=== PATIENT | male | born 1935 | race Caucasian/White ===

== ENCOUNTER 2017-07-01 12:55 | Emergency (ER) | payer MEDICARE, MEDICAID ==
[2017-07-01] MEDS ORDERED: oxyCODONE/Acetamin 5/325 MG* TAB PO ONE (14:10)
--- NOTE | 2017-07-01 14:33 | RAD ---
HISTORY: Trauma, fall, difficulty breathing COMPARISONS: None VIEWS: 7, Frontal view of the chest with frontal and oblique views of the right hemithorax. FINDINGS: There is a questionable nondisplaced fracture of the lateral aspect of the right eighth rib. There is no pneumothorax. There are chronic appearing fibrotic changes of the chest. IMPRESSION: QUESTIONABLE NONDISPLACED FRACTURE OF THE LATERAL ASPECT OF THE RIGHT EIGHTH RIB. THERE IS NO APPRECIABLE PNEUMOTHORAX.
[2017-07-01 15:11] LABS: ABS Basophils 0.1 10^3/ul (0-0.2); ABS Eosinophils 0.1 10^3/ul (0-0.6); ABS Lymphocytes 1.4 10^3/ul (1.0-4.8); ABS Monocytes 0.9 10^3/ul (0-0.8); ABS Neutrophils 9.1 10^3/ul (1.5-7.7); ABS Nucleated RBC 0 10^3/ul; Eosinophil % 0.8 % (0-6); Hematocrit 43 % (42-52); Hemoglobin 14.4 g/dl (14.0-18.0); Mean Corpuscular HGB Conc 34 g/dl (31-36); Mean Corpuscular Hemoglobin 33 pg (27-31); Mean Corpuscular Volume 96 fL (80-94); Mean Platelet Volume 7.5 um3 (7.4-10.4); Nucleated Red Blood Cells % 0; Platelet Count 166 10^3/ul (150-450); Red Blood Count 4.42 10^6/ul (4.0-5.4); Red Cell Distribution Width 14 % (10.5-15); White Blood Count 11.6 10^3/ul (3.5-10.8)
[2017-07-01 15:29] LABS: EGFR Non-African American 79.8 (>60)
[2017-07-01] MEDS ORDERED: Iohexol 300* (CONTRAST) 10 ML SDV IV ONE (15:32)
--- NOTE | 2017-07-01 16:20 | RAD ---
INDICATION: Fall. Chest, abdominal, pelvic pain. Evaluate for injury. COMPARISON: Right rib series July 01, 2017; chest x-ray November 03, 2015; CT abdomen pelvis on 2009; CTA chest January 08, 2009 TECHNIQUE: Axial source images were obtained from the thoracic inlet to the symphysis pubis following administration of oral and intravenous contrast. 103 mL Omnipaque 300 was utilized. Coronal and sagittal reconstructed images were acquired. CHEST FINDINGS: Neck/thyroid: The visualized neck to include the thyroid appear normal. Chest wall: There are no acute abnormalities of the bony thorax or chest wall. There is an old left 12th rib fracture. There is no supraclavicular, infraclavicular, or axillary lymphadenopathy. Lungs : There is pulmonary interstitial fibrosis. There is no focal consolidation. There is no pneumothorax. Cardiomediastinal structures: The heart is normal in size. There is no pericardial effusion. There is no evidence of aortic aneurysm or dissection. There is aortic ectasia with uncoiling. There are extensive intimal calcifications. The pulmonary vessels appear normal. There is no mediastinal or hilar adenopathy. The esophagus appears normal. Pleura : There are no pleural-based masses or effusions. ABDOMINAL/PELVIC FINDINGS: Liver: The liver is normal in size. There are no masses. There is no ductal dilatation. Gallbladder: There are no calcified gallstones. There is no evidence of wall thickening or pericholecystic fluid. Spleen: The spleen is normal in size. There are no masses. Pancreas: There is no evidence of pancreatic mass or ductal dilatation. The pancreas is mildly atrophic Adrenal glands: There is no evidence of adrenal mass. Kidneys: The kidneys are normal in size and position. There are prompt nephrograms and there is prompt excretion bilaterally. There are no renal parenchymal masses. There is no evidence of nephrolithiasis. Adenopathy: There is no evidence of adenopathy by size criteria. Fluid collections: There are no free or localized fluid collections. Vessels:There are atherosclerotic changes of the aorta. 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 The iliac vessels are ectatic tortuous and ectatic. The IVC is unremarkable GI tract: There are no acute CT bowel findings although evaluation is limited as oral contrast was not administered. There is no obstruction. The stomach and small bowel appear normal. The lower GI tract is remarkable for moderate diverticula. There are no CT findings of acute diverticulitis. Pelvic organs: The prostate is enlarged Bladder: There is trabeculation of the bladder with impression on the inferior wall by the mildly enlarged prostate. Abdominal and pelvic soft tissues: The extraperitoneal abdominal and pelvic soft tissues appear normal.. Osseous structures: There is spondylitic change of the thoracolumbar spine. No acute bony changes seen. IMPRESSION: 1. No acute CT findings of the chest. 2. Interstitial fibrotic changes. 3. No acute CT findings of the abdomen or pelvis. No evidence of traumatic injury to the solid viscera. 4. Scattered sigmoid colon diverticula. 5. BPH with trabeculation of bladder.
[2017-07-01 16:59] VITALS: BP 135/68
--- NOTE | 2017-07-01 21:10 | ED ---
Kulwant Lopez Nilda, scribed for Jayjay De Los Santos MD on 07/01/17 at 1415 . Adult Trauma - HPI Summary HPI Summary: This patient is an 81 year old M presenting to [facility] accompanied by with a chief complaint of constant R-rib pain and R-facial ecchymosis s/p tripping and falling forward while ambulating outside today at 1000. The patient rates the pain 5/10 in severity. Symptoms aggravated by inspiration, sitting, and movement , but alleviated by recumbent position. Patient denies neck pain, LOC, and memory loss of event. Pt states hes not on blood thinners except for baby aspirin last taken this morning. states they are unsure if tetanus vaccine UTD. She denies pt taking pain medications [employer]. Medications for mild HTN and mild HLD. NKDA. - History of Current Complaint Chief Complaint: EDChestWallPain Stated Complaint: FALL/FLANK PAIN Time Seen by Provider: 07/01/17 13:49 Hx Obtained From: Patient Mechanism of Injury: Fall Ambulatory at the Scene: Yes Loss of Consciousness: no loss of consciousness Onset/Duration: Started Hours Ago, Traumatic, Still Present Current Severity: Moderate Pain Intensity: 5 Pain Scale Used: 0-10 Numeric Location: Chest, Other - face Aggravating Factor(s): Movement, Deep Breaths, Other - sitting Alleviating Factor(s): Other - recumbent position Associated Signs & Symptoms: Positive: Other: - facial ecchymosis and R-rib pain ; negative neck pain, LOC, and memory loss. - Allergy/Home Medications Allergies/Adverse Reactions: Allergies Allergy/AdvReac Type Severity Reaction Status Date / Time esomeprazole Allergy GI Upset Verified 07/01/17 13:59 PMH/Surg Hx/FS Hx/Imm Hx Endocrine/Hematology History: Denies: Hx Diabetes, Hx Thyroid Disease Cardiovascular History: Reports: Hx Angina, Hx Congestive Heart Failure, Hx Hypercholesterolemia, Hx Hypertension Denies: Hx Pacemaker/ICD Respiratory History: Denies: Hx Asthma, Hx Chronic Obstructive Pulmonary Disease (COPD) GI History: Denies: Hx Ulcer History: Denies: Hx Renal Disease Musculoskeletal History: Denies: Hx Rheumatoid Arthritis, Hx Osteoporosis Sensory History: Reports: Hx Contacts or Glasses Denies: Hx Hearing Aid Opthamlomology History: Reports: Hx Contacts or Glasses Psychiatric History: Denies: Hx Panic Disorder - Surgical History Surgery Procedure, Year, and Place: DET[place]ED [place]INA [place] [facility] [place] D[place] 2004 PRIOR TO MRI - CLEARED FOR ANY METAL PER DR RACHEL CATARACT - Immunization History Date of Tetanus Vaccine: Unsure Date of Influenza Vaccine: 01/2013 Infectious Disease History: No Infectious Disease History: Denies: Hx Hepatitis, Hx Human Immunodeficiency Virus (HIV), Traveled Outside the [place] in Last 30 Days - Family History Known Family History: Negative: Cardiac Disease, Hypertension - Social History Lives: With Family Alcohol Use: Daily Alcohol Amount: 2 BEERS Substance Use Type: Reports: None Smoking Status (MU): Former Smoker Review of Systems Positive: Other - R-rib pain, mechanical fall; negative neck pain Positive: Bruising - R-face Neurological: Other - negative LOC, memory loss of event All Other Systems Reviewed And Are Negative: Yes Physical Exam - Summary Physical Exam Summary: GENERAL: Patient is a well developed and nourished M who is lying comfortable in the stretcher. Patient is not in any acute respiratory distress. HEAD AND FACE: Normocephalic except for ecchymosis to right side of medial aspect of face and abrasion on right cheek. EYES: PERRLA, EOMI x 2. EARS: Hearing grossly intact. MOUTH: Oropharynx within normal limits. NECK: Supple, trachea is midline, no adenopathy, no JVD, no carotid bruit. CHEST: Symmetric, Right anterior rib tenderness LUNGS: Crackles at the bases. CVS: Regular rate and rhythm, S1 and S2 present, no murmurs or gallops appreciated. ABDOMEN: Soft, RUQ tenderness. Bowel sounds are normal. No abdominal abnormal pulsations. EXTREMITIES: Full ROM in all major joints, no edema, no cyanosis or clubbing. NEURO: Alert and oriented x 3. No acute neurological deficits. Speech is normal and follows commands. SKIN: Dry and warm GCS: 15 Triage Information Reviewed: Yes Vital Signs On Initial Exam: Initial Vitals Temp Pulse Resp BP Pulse Ox 96.6 F 62 18 131/74 96 07/01/17 12:57 07/01/17 12:57 07/01/17 12:57 07/01/17 12:57 07/01/17 12:57 Vital Signs Reviewed: Yes Diagnostics - Vital Signs Vital Signs Temp Pulse Resp BP Pulse Ox 07/01/17 12:57 96.6 F 62 18 131/74 96 - Laboratory Result Diagrams: 07/01/17 15:00 07/01/17 15:00 Lab Statement: Any lab studies that have been ordered have been reviewed, and results considered in the medical decision making process. - Radiology Rib XR Radiology Interpretation Completed By: Radiologist - Rib XR reveals QUESTIONABLE NONDISPLACED FRACTURE OF THE LATERAL ASPECT OF THE RIGHT EIGHTH RIB. THERE IS NO APPRECIABLE PNEUMOTHORAX. Dr. De Los Santos has reviewed this radiology report. - CT Abd/Pel CT Interpretation Completed By: Radiologist - CT Abd/Pel, per radiologist, reveals 1. No acute CT findings of the chest. 2. Interstitial fibrotic changes. 3. No acute CT findings of the abdomen or pelvis. No evidence of traumatic injury to the solid viscera. 4. Scattered sigmoid colon diverticula. 5. BPH with trabeculation of bladder. Dr. De Los Santos has reviewed this radiology report. - EKG 1455 Cardiac Rate: NL EKG Rhythm: Sinus Rhythm - 61 bpm EKG Interpretation: prolonged TN interval, LBBB EKG Comparison: No Significant Change - similar to EKG 03/01/15 Re-Evaluation - Re-Evaluation First Eval Re-Evaluation Time: 15:13 Comment: Pt states pain is a little better but is still there. He notes pain is below rib cage. Second Eval Re-Evaluation Time: 16:36 Comment: Pt feels a lot better. Reviewed all labs and imaging with pt. Pt is agreeable to D/C. Adult Trauma Course/Dx - Course Assessment/Plan: This patient is an 81 year old M [place] [facility] by with a chief complaint of constant R-rib pain and R-facial ecchymosis s/p tripping and falling forward while ambulating outside today at 1000. The patient rates the pain 5/10 in severity. Symptoms aggravated by inspiration, sitting, and movement, but alleviated by rest. Patient denies neck pain, LOC, and memory loss of event. Pt states hes not on blood thinners except for baby aspirin last taken this morning. states they are unsure if tetanus vaccine UTD. She denies pt taking pain medications [employer]. Medications for mild HTN and mild HLD. NKDA. Pt is much improved. I reviewed the labs which shows mild leukocytosis. CXR shows questionable rib fracture on the right. CT Scan of Chest/Abd/Pelvis, show no rib fracture on right but show old rib fracture on left as well as fibrotic changes on the lungs. CT of abd showed no acute etiology. I discussed the results with the pt in great detail. Pt is hemodynamically stable and is safe for D/C home with strict return precautions. I suspect pts pain is likely secondary to rib contusion. Pt will be sent home with ibuprofen and incentive spirometer. - Diagnoses Provider Diagnoses: Rib contusion, Fall Discharge - Sign-Out/Discharge Documenting (check all that apply): Discharge - home - Discharge Plan Condition: Stable Disposition: HOME Prescriptions: Ibuprofen TAB* [Motrin TAB* 600 MG] 600 mg PO Q8H PRN #20 tab PRN Reason: Pain Patient Education Materials: How to Use an Incentive Spirometer (ED), Fall Prevention for Older Adults (ED), Rib Contusion (ED) Referrals: Price Ledbetter MD [Primary Care Provider] - 3 Days Additional Instructions: RETURN TO THE EMERGENCY DEPARTMENT FOR CHANGING OR WORSENING SYMPTOMS. The documentation as recorded by the Kulwant meyer Nilda accurately reflects the service I personally performed and the decisions made by me, Jayjay De Los Santos MD.
== END 2017-07-01 16:59 | disposition home or self-care (01) ==
LOC: ED 12:55
DX: S20.211A Contusion of right front wall of thorax, initial encounter (principal); S00.83XA Contusion of other part of head, initial encounter; W01.0XXA Fall on same level from slipping, tripping and stumbling without subsequent striking against object, initial encounter; Y93.9 Activity, unspecified; Y92.9 Unspecified place or not applicable; K57.30 Diverticulosis of large intestine without perforation or abscess without bleeding; N40.0 Benign prostatic hyperplasia without lower urinary tract symptoms; I20.9 Angina pectoris, unspecified; I11.0 Hypertensive heart disease with heart failure; I50.9 Heart failure, unspecified; E78.00 Pure hypercholesterolemia, unspecified; Z87.891 Personal history of nicotine dependence
CPT/HCPCS: 36415; 71260; 74177; 80053; 83690; 84484; 85025; 93005; 99282; A9270-GY; Q9967

== ENCOUNTER 2018-09-06 17:10 | Emergency (ER) | payer MEDICARE, MEDICAID ==
--- NOTE | 2018-09-06 17:36 | ED ---
HPI Chest Pain - HPI Summary HPI Summary: The patient is an 83 y[facility] with a chief complaint of sudden onset CP [employer] BENCH. 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 The chest pain is not present at this time. He denies SOB and dizziness. Hx of angina, CHF, HLD, HTN. Former smoker, daily EtOH, no substance use. - History of Current Complaint Chief Complaint: EDChestPainROMI Time Seen by Provider: 09/06/18 17:27 Hx Obtained From: Patient Onset/Duration: Started Minutes Ago, Resolved Timing: Lasting Seconds - 15-20 Initial Severity: Mild Current Severity: None Pain Intensity: 0 Pain Scale Used: 0-10 Numeric Chest Pain Location: Upper Sternal Chest Pain Radiates: Yes Chest Pain Radiates To:: Other - from left to right anterior Character: Dull/Aching Aggravating Factor(s): Nothing Alleviating Factor(s): Nothing Associated Signs and Symptoms: Negative: Dizziness, Shortness of Breath - Allergy/Home Medications Allergies/Adverse Reactions: Allergies Allergy/AdvReac Type Severity Reaction Status Date / Time esomeprazole Allergy GI Upset Verified 07/01/17 13:59 PMH/Surg Hx/FS Hx/Imm Hx Endocrine/Hematology History: Denies: Hx Diabetes, Hx Thyroid Disease Cardiovascular History: Reports: Hx Angina, Hx Congestive Heart Failure, Hx Hypercholesterolemia, Hx Hypertension Denies: Hx Pacemaker/ICD Respiratory History: Denies: Hx Asthma, Hx Chronic Obstructive Pulmonary Disease (COPD) GI History: Denies: Hx Ulcer History: Denies: Hx Renal Disease Musculoskeletal History: Denies: Hx Rheumatoid Arthritis, Hx Osteoporosis Sensory History: Reports: Hx Contacts or Glasses Denies: Hx Hearing Aid Opthamlomology History: Reports: Hx Contacts or Glasses Psychiatric History: Denies: Hx Panic Disorder - Surgical History Surgery Procedure, Year, and Place: DETACHED RETINA - @ [facility] [place] - ORBIT XRAY DONE 2004 PRIOR TO MRI - CLEARED FOR ANY METAL PER DR RACHEL CATARACT - Immunization History Date of Tetanus Vaccine: Unsure Date of Influenza Vaccine: 01/2013 Infectious Disease History: No Infectious Disease History: Denies: Hx Hepatitis, Hx Human Immunodeficiency Virus (HIV), Traveled Outside the [place] in Last 30 Days - Family History Known Family History: Negative: Cardiac Disease, Hypertension - Social History Alcohol Use: Daily Alcohol Amount: 2 BEERS Hx Substance Use: No Substance Use Type: Reports: None Hx Tobacco Use: Yes Smoking Status (MU): Former Smoker Do You Chew or Dip Tobacco: No Have You Chewed or Dipped Tobacco in the LAST YEAR: No Have You Smoked in the Last Year: No Review of Systems Positive: Chest Pain - dull, across the chest Negative: Shortness Of Breath Neurological: Other - NEGATIVE: dizziness All Other Systems Reviewed And Are Negative: Yes Physical Exam - Summary Physical Exam Summary: VITAL SIGNS: Reviewed. GENERAL: Patient is a well-developed and nourished male who is lying comfortable in the stretcher. Patient is not in any acute respiratory distress. HEAD AND FACE: No signs of trauma. No ecchymosis, hematomas or skull depressions. No sinus tenderness. EYES: PERRLA, EOMI x 2, No injected conjunctiva, no nystagmus. EARS: Hearing grossly intact. Ear canals and tympanic membranes are within normal limits. MOUTH: Oropharynx within normal limits. NECK: Supple, trachea is midline, no adenopathy, no JVD, no carotid bruit, no c- spine tenderness, neck with full ROM. CHEST: Symmetric, no tenderness at palpation LUNGS: Clear to auscultation bilaterally. No wheezing or crackles. CVS: Regular rate and rhythm, S1 and S2 present, no murmurs or gallops appreciated. ABDOMEN: Soft, non-tender. No signs of distention. No rebound no guarding, and no masses palpated. Bowel sounds are normal. EXTREMITIES: FROM in all major joints, no edema, no cyanosis or clubbing. NEURO: Alert and oriented x 3. No acute neurological deficits. Speech is normal and follows commands. SKIN: Dry and warm. Triage Information Reviewed: Yes Vital Signs On Initial Exam: Initial Vitals Temp Pulse Resp BP Pulse Ox 98.2 F 81 16 173/100 93 09/06/18 17:26 09/06/18 17:26 09/06/18 17:26 09/06/18 17:26 09/06/18 17:26 Vital Signs Reviewed: Yes Diagnostics - Vital Signs Vital Signs Temp Pulse Resp BP Pulse Ox 09/06/18 17:26 98.2 F 81 16 173/100 93 - Laboratory Result Diagrams: 09/06/18 18:01 09/06/18 18:01 Lab Statement: Any lab studies that have been ordered have been reviewed, and results considered in the medical decision making process. - Radiology CXR Radiology Interpretation Completed By: Radiologist Summary of Radiographic Findings: No acute process. ED physician has reviewed this radiology report. - EKG 1723 Cardiac Rate: NL - 73 BPM EKG Rhythm: Sinus Rhythm EKG Comparison: No Significant Change - Similar to EKG taken on 07/01/2017 Summary of EKG Findings: No ST elevations Re-Evaluation - Re-Evaluation First Eval Re-Evaluation Time: 21:15 Change: Improved Comment: I discussed results and discharge home with the patient. He is feeling better in the ED. Chest Pain Course/Dx - Course Assessment/Plan: The patient is an 83 y/o M presenting to [facility] accompanied by neighbor with a chief complaint of sudden onset CP [employer]. 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 The chest pain is not present at this time. He denies SOB and dizziness. Hx of angina, CHF, HLD , HTN. Former smoker, daily EtOH, no substance use. Blood work without any significant abnormality. Two troponins 4 hours apart are 0.01. Chest x-ray impression: no acute process. Since the patient has two negative troponins and he is symptom-free, the patient can be discharged home with follow-up with primary care physician. The patient is hemodynamically stable alert and oriented 3. - Diagnoses Provider Diagnoses: Atypical chest pain Discharge - Sign-Out/Discharge Documenting (check all that apply): Patient Departure - The patient will be discharged home. Patient Received Moderate/Deep Sedation with Procedure: No - Discharge Plan Condition: Stable Disposition: HOME Patient Education Materials: Chest Pain (DC) Referrals: Price Ledbetter MD [Primary Care Provider] - 3 Days Additional Instructions: FOLLOW UP WITH YOUR PRIMARY CARE PROVIDER. RETURN TO THE EMERGENCY DEPARTMENT FOR ANY NEW OR WORSENING SYMPTOMS. - Billing Disposition and Condition Condition: STABLE Disposition: Home - Attestation Statements Document Initiated by Scribe: Yes Documenting Scribe: Tenisha Painter Provider For Whom Scribe is Documenting (Include Credential): Dr. Vasiliy Harris MD Scribe Attestation: ITenisha, scribed for Dr. Vasiliy Harris MD on 09/07/18 at 1113. Scribe Documentation Reviewed: Yes Provider Attestation: The documentation as recorded by the scribe, Tenisha Painter accurately reflects the service I personally performed and the decisions made by me, Dr. Vasiliy Harris MD Status of Scribe Document: Viewed
[2018-09-06] MEDS ORDERED: Aspirin 81 mg CHEW TAB* 81 MG TAB.CHEW PO ONE (17:47)
[2018-09-06 18:11] LABS: ABS Eosinophils 0.2 10^3/ul (0-0.6); ABS Lymphocytes 1.3 10^3/ul (1.0-4.8); ABS Monocytes 0.8 10^3/ul (0-0.8); ABS Neutrophils 5.1 10^3/ul (1.5-7.7); Eosinophil % 2.6 %; Hematocrit 45 % (42-52); Hemoglobin 14.9 g/dL (14.0-18.0); Lymphocyte % 17.8 %; Mean Corpuscular HGB Conc 34 g/dL (31-36); Mean Corpuscular Hemoglobin 32 pg (27-31); Mean Corpuscular Volume 96 fL (80-94); Mean Platelet Volume 7.3 fL (7.4-10.4); Nucleated Red Blood Cells % 0.1; Platelet Count 187 10^3/uL (150-450); Red Blood Count 4.63 10^6 /uL (4.18-5.48); Red Cell Distribution Width 15 % (10-15); White Blood Count 7.5 10^3/uL (3.5-10.8)
[2018-09-06 18:26] LABS: Albumin 3.7 g/dL (3.2-5.2); Albumin/Globulin Ratio 1.2 (1-3); BUN/Creatinine Ratio 17.3 (8-20); Calcium 9.2 mg/dL (8.6-10.3); EGFR African American 77.2 (>60); EGFR Non-African American 63.8 (>60); Potassium 3.7 mmol/L (3.5-5.0); Total Bilirubin 0.6 mg/dL (0.2-1.0); Total Protein 6.7 g/dL (6.4-8.9)
[2018-09-06 18:29] LABS: Troponin I 0.01 ng/mL (<0.04)
[2018-09-06 18:31] LABS: CKMB ng/mL 1.5 ng/mL (0.6-6.3)
[2018-09-06 18:59] LABS: TSH (Thyroid Stimulating Horm) 1.98 mcIU/mL (0.34-5.60)
[2018-09-06 21:43] VITALS: BP 137/73
--- NOTE | 2018-09-07 09:30 | PN ---
Progress Note - Progress Note Date of Service: 09/06/18 Note: Pt. seen in ED yesterday after an episode of chest pain. Per Dr. Harris's note pt. was chest pain free in ER without SOB, dizzy, syncope, ect. Workup was negative and pt. was dc home. Dr. García reviewed CXR this morning and was concerned there has been widening of aorta arch compared to prior study. He recommends CTA if pt. is having sxs of dissection. It did not appear pt. was having sxs of dissection in ED past on ER report. Attempted to call pt. today at 0925 without answer or voicemail. Will call again later in the day. CXR read per Dr. García: IMPRESSION: 1. MILD INCREASE IN THE DIFFUSE PARENCHYMAL DENSITY RELATIVE TO THE PREVIOUS CHEST X-RAY. THIS APPEARANCE COULD BE DUE TO INTERSTITIAL LUNG DISEASE, WORSENING CONGESTIVE HEART FAILURE OR PNEUMONITIS. 2. RELATIVE TO THE CHEST X-RAY ACQUIRED NOVEMBER 03, 2015 THERE APPEARS TO BE INTERVAL WIDENING OF THE ARCH OF THE AORTA NOW MEASURING APPROXIMATELY 4.7 CM IN DIAMETER. THIS APPEARANCE COULD BE DUE TO MAGNIFICATION. IF THE PATIENT IS EXHIBITING ANY SIGNS CONSISTENT WITH THORACIC AORTIC ANEURYSM, SUPERIOR CHARACTERIZATION CAN BE MADE WITH CTA.
== END 2018-09-06 21:45 | disposition home or self-care (01) ==
LOC: ED 17:10
DX: R07.89 Other chest pain (principal); Z87.891 Personal history of nicotine dependence; I10 Essential (primary) hypertension; E78.5 Hyperlipidemia, unspecified; I50.9 Heart failure, unspecified
CPT/HCPCS: 36415; 71046; 80053; 82550; 82553; 83605; 83880; 84443; 84484; 85025; 93005; 99284; A9270-GY

== ENCOUNTER 2018-10-02 12:37 | Emergency (ER) | payer MEDICARE, MEDICAID ==
--- NOTE | 2018-10-02 14:35 | ED ---
Neck Pain - HPI Summary HPI Summary: The patient is an 83 y/o M presenting to [facility] with a chief complaint of sudden onset bilateral neck pain this morning. He reports that he went to bed last night and slept well but woke up with the pain and stiffness, which is worse on the right than the left. There is decreased ROM secondary to the pain and stiffness that is currently rated 8/10 in severity. He denies CP, palpitations, SOB, dysphagia, and headache. Hx of angina, CHF, HLD, HTN. Surgical hx of retinal detachment. Former smoker, no EtOH, no substance use. - History of Current Complaint Chief Complaint: EDNeckComplaint Stated Complaint: NECK AND HEAD PAIN Time Seen by Provider: 10/02/18 14:08 Hx Obtained From: Patient Onset/Duration Of Injury/Symptoms: Hours Mechanism Of Injury: No Known Trauma Timing: Lasting Hours Onset/Duration: Sudden Onset, Started hours ago, Still Present Severity Initially: Moderate Severity Currently: Severe Pain Intensity: 8 Pain Scale Used: 0-10 Numeric Location: Discrete At: - bilateral neck worse on right Character: Stiff Aggravating Factors: Movement - of neck Alleviating Factors: Position - rest Associated Signs & Symptoms: Negative: Headache - Allergies/Home Medications Allergies/Adverse Reactions: Allergies Allergy/AdvReac Type Severity Reaction Status Date / Time esomeprazole Allergy GI Upset Verified 10/02/18 12:49 Home Medications: Home Medications Cyanocobalamin (Vitamin B-12) [Vitamin B-12] 100 mcg PO DAILY 10/02/18 [History Confirmed 10/02/18] PMH/Surg Hx/FS Hx/Imm Hx Endocrine/Hematology History: Denies: Hx Diabetes, Hx Thyroid Disease Cardiovascular History: Reports: Hx Angina, Hx Congestive Heart Failure, Hx Hypercholesterolemia, Hx Hypertension Denies: Hx Pacemaker/ICD Respiratory History: Denies: Hx Asthma, Hx Chronic Obstructive Pulmonary Disease (COPD) GI History: Denies: Hx Ulcer History: Denies: Hx Renal Disease Musculoskeletal History: Denies: Hx Rheumatoid Arthritis, Hx Osteoporosis Sensory History: Reports: Hx Contacts or Glasses Denies: Hx Hearing Aid Opthamlomology History: Reports: Hx Contacts or Glasses Psychiatric History: Denies: Hx Panic Disorder - Surgical History Surgery Procedure, Year, and Place: DETACHED RETINA - [place] [facility] [place] DONE 2004 PRIOR TO MRI - CLEARED FOR ANY METAL PER DR RACHEL CATARACT - Immunization History Date of Tetanus Vaccine: Unsure Date of Influenza Vaccine: 01/2013 Infectious Disease History: No Infectious Disease History: Denies: Hx Hepatitis, Hx Human Immunodeficiency Virus (HIV), Traveled Outside the [place] in Last 30 Days - Family History Known Family History: Negative: Cardiac Disease, Hypertension - Social History Alcohol Use: None Hx Substance Use: No Substance Use Type: Reports: None Hx Tobacco Use: Yes Smoking Status (MU): Former Smoker Have You Smoked in the Last Year: No Review of Systems Positive: Other - NEGATIVE: dysphagia Negative: Palpitations, Chest Pain Negative: Shortness Of Breath Positive: Myalgia - bilateral neck worse on right than left, stiffness, Decreased ROM - in the neck secondary to pain and stiffness Negative: Headache All Other Systems Reviewed And Are Negative: Yes Physical Exam - Summary Physical Exam Summary: VITAL SIGNS: Reviewed. GENERAL: Patient is a well-developed and nourished male who is lying comfortable in the stretcher. Patient is not in any acute respiratory distress. HEAD AND FACE: No signs of trauma. No ecchymosis, hematomas or skull depressions. No sinus tenderness. EYES: PERRLA, EOMI x 2, No injected conjunctiva, no nystagmus. EARS: Hearing grossly intact. Ear canals and tympanic membranes are within normal limits. MOUTH: Oropharynx within normal limits. NECK: No C-spine tenderness, but there is tenderness along the sternocleidomastoid and trapezius on the right side. Supple, trachea is midline , no adenopathy, no JVD, no carotid bruit, neck with full ROM. CHEST: Symmetric, no tenderness at palpation. LUNGS: Clear to auscultation bilaterally. No wheezing or crackles. CVS: Regular rate and rhythm, S1 and S2 present, no murmurs or gallops appreciated. ABDOMEN: Soft, non-tender. No signs of distention. No rebound, no guarding, and no masses palpated. Bowel sounds are normal. EXTREMITIES: FROM in all major joints, no edema, no cyanosis or clubbing. NEURO: Alert and oriented x 3. No acute neurological deficits. Speech is normal and follows commands. SKIN: Dry and warm. Triage Information Reviewed: Yes Vital Signs On Initial Exam: Initial Vitals Temp Pulse Resp BP Pulse Ox 99.3 F 94 16 189/113 93 10/02/18 12:44 10/02/18 12:44 07/04/19 12:44 10/02/18 12:44 10/02/18 12:44 Vital Signs Reviewed: Yes Diagnostics - Vital Signs Vital Signs Temp Pulse Resp BP Pulse Ox 10/02/18 12:44 99.3 F 94 16 189/113 93 - Laboratory Lab Statement: Any lab studies that have been ordered have been reviewed, and results considered in the medical decision making process. - CT Cervical Spine CT CT Interpretation Completed By: Radiologist Summary of CT Findings: 1. Osteopenia. 2. Degenerative disc disease and osteoarthritis. 3. There is moderate narrowing of the central canal at c5-c6 with mild narrowing at C3-C4, C4-C5, and C6-C7. 4. There is multilevel neural foraminal narrowing as described above. 5. Atherosclerosis. ED physician has reviewed this report. Re-Evaluation - Re-Evaluation First Eval Re-Evaluation Time: 16:00 Change: Improved Comment: We discussed results and discharge home after his symptoms have improved. Neck Course/Dx - Course Assessment/Plan: The patient is an 83 y/o M presenting to [facility] with a chief complaint of sudden onset bilateral neck pain this morning. He reports that he went to bed last night and slept well but woke up with the pain and stiffness, which is worse on the right than the left. There is decreased ROM secondary to the pain and stiffness that is currently rated 8/10 in severity. He denies CP, palpitations, SOB, dysphagia, and headache. Hx of angina, CHF, HLD, HTN. Surgical hx of retinal detachment. Former smoker, no EtOH, no substance use. C- spine CT Impression: 1. OSTEOPENIA. 2. DEGENERATIVE DISC DISEASE AND OSTEOARTHRITIS. 3. THERE IS MODERATE NARROWING OF THE CENTRAL CANAL AT C5-C6 WITH MILD NARROWING AT C3-C4, C4-C5, AND C6-C7. 4. THERE IS MULTILEVEL NEURAL FORAMINAL NARROWING DESCRIBED ABOVE. 5. ATHEROSCLEROSIS. In the physical exam , the patient most likely exhibits musculoskeletal pain likely torticollis. The patient was given dexamethasone, [place], Toradol, and Robaxin. After these medications, the patients symptoms have significantly improved. Therefore, he will be discharged home with follow-up with PCP. I discussed all the findings and test results with the patient. Patient was instructed to return to the emergency room immediately if any of the symptoms return worsens. Plan of care was discussed with the patient and understands and agrees. All questions were answered at patient satisfaction. There were no further complaints or concerns. Lung exam before discharge: CTA B/L. Good air exchange. No wheezing or crackles heard. CVS: S1 and S2 present. No murmurs appreciated. Patient is alert and oriented x 3. Patient is hemodynamically stable. Patient will be discharged home with follow up PCP in the next 2-3 days. - Diagnoses Provider Diagnoses: Neck pain Discharge - Sign-Out/Discharge Documenting (check all that apply): Patient Departure - Patient will be discharged home. Patient Received Moderate/Deep Sedation with Procedure: No - Discharge Plan Condition: Stable Disposition: HOME Prescriptions: HYDROcodone/ACETAMIN 5-325 MG* [[place] 5-325 TAB*] 1 tab PO Q6H PRN #10 tab MDD 4 PRN Reason: Pain Methocarbamol TAB* [Robaxin 500 MG TAB*] 500 mg PO TID PRN #12 tab PRN Reason: Spasms - Back methylPREDNISolone [Medrol Dosepak 4 MG*] 0 mg PO .SEE FERNANDO INSTRUCTION #1 fernando Patient Education Materials: Neck Pain (ED) Referrals: Price Ledbetter MD [Primary Care Provider] - 3 Days Additional Instructions: Please take medications as prescribed. Follow up with your primary care provider in 2-3 days. RETURN TO THE EMERGENCY DEPARTMENT FOR ANY NEW OR WORSENING SYMPTOMS. - Billing Disposition and Condition Condition: STABLE Disposition: Home - Attestation Statements Document Initiated by Maty: Yes Documenting Scribe: Tenisha Painter Provider For Whom Maty is Documenting (Include Credential): Dr. Vasiliy Harris MD Scribe Attestation: Tenisha Lopez scribed for Dr. Vasiliy Harris MD on 10/02/18 at 2030. Scribe Documentation Reviewed: Yes Provider Attestation: The documentation as recorded by the Tenisha meyer accurately reflects the service I personally performed and the decisions made by me, Dr. Vasiliy Harris MD Status of Scribe Document: Ready
[2018-10-02] MEDS ORDERED: Methocarbamol TAB* 500 MG PO ONE (15:28)
[2018-10-02] MEDS ORDERED: Ketorolac INJ* 60 MG/2 ML VIAL IM ONE (15:28)
[2018-10-02] MEDS ORDERED: HYDROcodone/ACETAMIN 5-325 MG* 1 TAB PO ONE (15:28)
[2018-10-02] MEDS ORDERED: Dexamethasone TAB* 4 MG PO ONE (15:29)
[2018-10-02 16:30] VITALS: BP 187/96
== END 2018-10-02 16:27 | disposition home or self-care (01) ==
LOC: ED 12:37
DX: M50.30 Other cervical disc degeneration, unspecified cervical region (principal); M85.88 Other specified disorders of bone density and structure, other site; M47.812 Spondylosis without myelopathy or radiculopathy, cervical region; I70.90 Unspecified atherosclerosis
CPT/HCPCS: 72125; 96372; 99283; A9270-GY; J1885; J8540

== ENCOUNTER 2019-07-17 06:20 | Emergency (ER) | payer MEDICARE, MEDICAID ==
--- OUTSIDE RECORDS SUMMARY | 2019-07-17 06:37 | XMS REPORT | Continuity of Care Document ---
:1935 External Reference #:[id number] Author Name Price Ledbetter MD Address [address] [place] [address] Problems Active Problems Provider Date Adult health examination Onset: 04/17/2018 Gastroesophageal reflux disease Onset: 10/29/2016 Pneumonia Onset: 07/20/2015 Tubular adenoma of colon Onset: 10/26/2014 Dementia Onset: 04/22/2014 Raynaud's phenomenon Onset: 02/12/2014 Benign essential hypertension Onset: 04/17/2018 Social History Type Date Description Comments Sex Unknown Tobacco Use Start: Unknown End: Unknown Patient is a former smoker quit 1972 Smoking Status Reviewed: 06/11/19 Patient is a former smoker quit 1972 Allergies, Adverse Reactions, Alerts Active Allergies Reaction Severity Comments Date Aricept Sleep issues Mild 12/05/2018 Chlorthalidone Hyponatremia Moderate 12/05/2018 Medications Active Medications SIG Qnty Indications Ordering Provider Date Lisinopril 1 by mouth 90tabs Price Ledbetter MD 06/18/2019 5mg Tablets every day Vitamin C 1 twice daily 60tabs Unknown 06/07/2014 500mg Tablets Oral Vitamin B-12 1 Daily Oral 30tabs Unknown 06/04/2014 100mcg Tablets Medications Administered in Office Medication SIG Qnty Indications Ordering Provider Date Injection Triamcinolone Acetonide Unknown 05/03/2017 Per 10 MG Injection Inject/Drain Arthrocentesis Major Unknown 05/03/2017 Joint/Bursa/Ganglion Cyst Injection Immunizations CPT Code Status Date Vaccine Lot # [id number] Given 06/08/2019 Shingrix - Shingles vaccine, Herpes Zoster [id number] Given 06/08/2019 Flu High Dose [id number] 72024 Given 01/18/2018 Flu High Dose 06338 Given 12/21/2016 Flu High Dose 75582 Given 01/30/2016 Flu High Dose 71212 Given 05/31/2014 Prevnar 13 64867 Given 04/10/2013 Tdap - Boostrix/Adacel 73632 Given 02/16/2013 Pneumovax - for >=2years - PPSV23 Vital Signs Date Vital Result Comment 06/17/2019 1:42pm Weight 158.00 lb 06/11/2019 3:09pm BP Systolic 130 mmHg BP Diastolic 62 mmHg Height 67.5 inches 5'7.50" Weight 159.00 lb Heart Rate 75 /min Body Temperature 97.0 F O2 % BldC Oximetry 95 % room air BMI (Body Mass Index) 24.5 kg/m2 Results Test Acquired Date Facility Test Result H/L Range Note Urine Culture And 06/17/2019 [facility] Urine Culture SEE RESULT [address] [place] [address] [phone] CFM Urinalysis 06/17/2019 [facility] Urine 1.015 ( )- - Specific [place] Ua PH Test Strip 7.0 Ua WBC Trace Ua Protein Trace Urine Glucose QL Neg Urine Ketones QL Test Strip Trace Urine Bilirubin TTL QL T-Strip Small Urine Urobilinogen QN TS 1.0E.U/dL Urine Nitrite QL TS Neg Ua Occult Blood Neg CBC Auto 06/17/2019 [facility] White Blood 6.9 10^3/uL Normal 3.5-10.[address] [place] [address] [phone] Red Blood Count 4.80 10^6/uL Normal 4.18-5.48 Hemoglobin 16.9 g/dL Normal 14.0-18.0 Hematocrit 48 % Normal 42-52 Mean Corpuscular Volume 100 fL High 80-94 Mean Corpuscular Hemoglobin 35 pg High 27-31 Mean Corpuscular HGB Conc 35 g/dL Normal 31-36 Red Cell Distribution Width 14 % Normal 10-15 Platelet Count 167 10^3/uL Normal 150-450 Mean Platelet Volume 8.7 fL Normal 7.4-10.4 Abs Neutrophils 4.9 10^3/uL Normal 1.5-7.7 Abs Lymphocytes 1.1 10^3/uL Normal 1.0-4.8 Abs Monocytes 0.8 10^3/uL Normal 0-0.8 Abs Eosinophils 0.2 10^3/uL Normal 0-0.6 Abs Basophils 0.0 10^3/uL Normal 0-0.2 Abs Nucleated RBC 0.0 10^3/uL Granulocyte % 70.4 % Lymphocyte % 15.2 % Monocyte % 11.7 % Eosinophil % 2.2 % Basophil % 0.5 % Nucleated Red Blood Cells % 0.1 Comp Metabolic 06/17/2019 [facility] Sodium 137 mmol/L Normal 135-[address] [place] [address] [phone] Potassium 4.1 mmol/L Normal 3.5-5.0 Chloride 99 mmol/L Low 101-111 Co2 Carbon Dioxide 30 mmol/L Normal 22-32 Anion Gap 8 mmol/L Normal 2-11 Glucose 103 mg/dL High 70-100 Blood Urea Nitrogen 16 mg/dL Normal 6-24 Creatinine 1.15 mg/dL Normal 0.67-1.17 BUN/Creatinine Ratio 13.9 Normal 8-20 Calcium 9.7 mg/dL Normal 8.6-10.3 Total Protein 6.7 g/dL Normal 6.4-8.9 Albumin 3.9 g/dL Normal 3.2-5.2 Globulin 2.8 g/dL Normal 2-4 Albumin/Globulin Ratio 1.4 Normal 1-3 Total Bilirubin 0.90 mg/dL Normal 0.2-1.0 Alkaline Phosphatase 86 U/L Normal 34-104 Alt 16 U/L Normal 7-52 Ast 22 U/L Normal 13-39 Egfr Non- 60.6 >60 Egfr 73.3 >60 2 Laboratory test 06/17/2019 [facility] B-Type 132 pg/mL High <= 100 [address] [place] [address] Peptide BNP [phone] Folic Acid (Folate) 6.46 ng/mL >3.99 4 Vitamin B12 817 pg/mL Normal 180-914 5 1 SEE RESULT BELOW Name: ALBERT MURILLO : [address]: Price Ledbetter MD Acct: [id number] Unit: [id number] AGE: 83 Location: [facility] Re06/17/19 SEX: M Status: REG REF SPEC: [id number] ISIDRO: 06/17/19-[address]: Price Ledbetter MD REQ: [id number] RECD: 06/17/19 STATUS: COMP _ SOURCE: URINE SPDESC: ORDERED: Urine Culture COMMENTS: [id number] Urine Source: Random Procedure Result Reported Site Urine Culture Final 06/18/19- 1437 ML No Growth (<1,000 CFU/mL) * - Main Lab . END OF REPORT DEPARTMENT OF PATHOLOGY, [address] [place] [address] Onesimo Miramontes M.D. Director [facility] # [id number] 2 Because ethnic data is not always readily available, this report includes an eGFR for both -Americans and non- Americans. The National Kidney Disease Education Program (NKDEP) does not endorse the use of the MDRD equation for patients that are not between the ages of 18 and 70, are , have extremes of body size, muscle mass, or nutritional status, or are non- or non-. According to the National Kidney Foundation, irrespective of diagnosis, the stage of the disease is based on the level of kidney function: Stage Description GFR(mL/min/1.73 m(2)) 1 Kidney damage with normal or decreased GFR 90 2 Kidney damage with mild decrease in GFR 60-89 3 Moderate decrease in GFR 30-59 4 Severe decrease in GFR 15-29 5 Kidney failure <15 (or dialysis) 3 [id number] 4 [id number] 5 Normal Range 180 to 914 Indeterminate Range 145 to 180 Deficient Range <145 Procedures Date Code Description Status 06/17/2019 63310 Electrocardiogram Complete Completed 06/11/2019 46296 Brief Emotional/Behav Assessment W/ Scoring Doc Per Completed Standard Inst 06/08/2019 85957 Visual Screening Test Of Visual Acuity, Quantitative, Completed Bilateral Medical Devices Description No Information Available Encounters Type Date Location Provider Dx Diagnosis Office Visit 06/17/2019 1:15p CFM Alden Ledbetter MD I50.30 Unspecified diastolic (congestive) heart failure R53.83 Other fatigue R91.8 Other nonspecific abnormal finding of lung field R41.82 Altered mental status, unspecified Office Visit 06/11/2019 3:00p LUIZ Ledbetter MD M46.1 Sacroiliitis , not elsewhere classified Assessments Date Code Description Provider 06/17/2019 I50.30 Unspecified diastolic (congestive) heart failure Price Ledbetter MD 06/17/2019 R53.83 Other fatigue Price Ledbetter MD 06/17/2019 R91.8 Other nonspecific abnormal finding of lung field Price Ledbetter MD 06/17/2019 R41.82 Altered mental status, unspecified Price Ledbetter MD 06/11/2019 M46.1 Sacroiliitis, not elsewhere classified Price Ledbetter MD 06/08/2019 Z00.00 Encounter for general adult medical examination Price Ledbetter MD without abnormal findings Plan of Treatment 06/17/2019 - Price Ledbetter MDI50.30 Unspecified diastolic (congestive) heart xlaqhutH19.83 Other bpxbtniJ08.8 Other nonspecific abnormal finding of lung fieldNew Xrays:Chest 2 Views, Ordered: 06/17/19R41.82 Altered mental status, unspecified Functional Status Description No Information Available Mental Status Description No Information Available Referrals Refer to Reason for Referral Status Appt Date Lj Garcia MD Abnormal EKG, rales, elevated BNP and Created mild fatigue. Started on lisinopril 5mg. [address] [place] [address] [phone] [facility] ongoing hoarseness for past [facility] several months [address] [place] [address] [phone]
--- OUTSIDE RECORDS SUMMARY | 2019-07-17 06:37 | XMS REPORT | Continuity of Care Document ---
:1935 External Reference #:[id number] Author Name Price Ledbetter MD (transmitted by agent of provider [facility]) Address [address] [place] [address] Care Team Providers Name Role Phone Lj Garcia MD - Cardiovascular Care Team Information Director [employer] Unavailable Disease Problems Active Problems Provider Date Adult health [...] CPT Code Status Date Vaccine Lot # [id number] Given 06/08/2019 Shingrix - Shingles vaccine, Herpes Zoster [id number] 55195 Given 06/08/2019 Flu High Dose [id number] 56090 Given 01/18/2018 Flu High Dose 58468 Given 12/21/2016 Flu High Dose 33019 Given 01/30/2016 Flu High Dose 11363 Given 05/31/2014 Prevnar 13 45073 Given 04/10/2013 Tdap - Boostrix/Adacel 15710 Given 02/16/2013 Pneumovax - for >=2years - [...] H/L Range Note Urine Culture And 06/17/2019 [facility] Urine Culture SEE RESULT [address] [place] [address] [phone] CFM Urinalysis 06/17/2019 [facility] Urine 1.015 ( )- - Specific [place] Ua PH Test Strip 7.0 Ua WBC Trace Ua Protein Trace Urine Glucose QL Neg Urine Ketones QL Test Strip Trace Urine Bilirubin TTL QL T-Strip Small Urine Urobilinogen QN TS 1.0E.U/dL Urine Nitrite QL TS Neg Ua Occult Blood Neg CBC Auto 06/17/2019 [facility] White Blood 6.9 10^3/uL Normal 3.5-10.[address] [place] [address] [phone] Red Blood Count 4.80 10^6/uL Normal 4.18-5.48 [...] Blood Cells % 0.1 Comp Metabolic 06/17/2019 [facility] Sodium 137 mmol/L Normal 135-[address] [place] [address] [phone] Potassium 4.1 mmol/L Normal 3.5-5.0 Chloride 99 [...] Egfr 73.3 >60 2 Laboratory test 06/17/2019 [facility] B-Type 132 pg/mL High <= 100 [address] [place] [address] Peptide BNP [phone] Folic Acid (Folate) 6.46 ng/mL >3.99 4 Vitamin B12 817 pg/mL Normal 180-914 5 1 SEE RESULT BELOW Name: ALBERT MURILLO : [address]: Price Ledbetter MD Acct: [id number] Unit: [id number] AGE: 83 Location: [facility] Re06/17/19 SEX: M Status: REG REF SPEC: [id number] ISIDRO: 06/17/19-[address] [facility] [address]: Price Ledbetter MD REQ: [id number] RECD: 06/17/19 STATUS: COMP _ SOURCE: URINE SPDESC: ORDERED: Urine Culture COMMENTS: [id number] Urine Source: Random Procedure Result Reported Site Urine Culture Final 06/18/19- 1437 ML No Growth (<1,000 CFU/mL) * ML - Main Lab . END OF REPORT DEPARTMENT OF PATHOLOGY, [address] [place] [address] Onesimo Miramontes M.D. Director [facility] # [id number] 2 Because ethnic data is not always [...] 5 Kidney failure <15 (or dialysis) 3 [id number] 4 [id number] 5 Normal Range 180 to 914 Indeterminate Range 145 to 180 Deficient Range <145 Procedures Date Code Description Status 06/17/2019 02798 Electrocardiogram Complete Completed 06/11/2019 10276 Brief Emotional/Behav Assessment W/ Scoring Doc Per Completed Standard Inst 06/08/2019 83507 Visual Screening Test Of Visual Acuity, Quantitative, Completed Bilateral Medical Devices Description No Information Available Encounters Type Date Location Provider Dx Diagnosis Office Visit 06/17/2019 1:15p LUIZ Ledbetter MD I50.30 Unspecified diastolic (congestive) heart [...] examination Price Ledbetter MD without abnormal findings 06/08/2019 Z01.00 Encounter for examination of eyes and vision Price Ledbetter MD without abnormal findings 06/08/2019 Z23 Encounter for immunization Price Ledbetter MD Plan of Treatment 06/17/2019 - Price Ledbetter MDI50.30 Unspecified diastolic (congestive) heart hfrqjbtM93.83 Other dfsqjtxL38.8 Other nonspecific abnormal finding of lung fieldNew Xrays:Chest 2 Views, Ordered: 06/17/19R41.82 Altered mental status, unspecified Functional Status Description No Information Available Mental Status Description No Information Available Referrals Refer to Dr Reason for Referral Status Appt Date Lj Garcia MD Abnormal EKG, rales, elevated BNP and Sent mild fatigue. Started on lisinopril [address]mg. [address] [place] [address] [phone] [facility] ongoing hoarseness for past [facility] several months [address] [place] [address] [phone]
--- OUTSIDE RECORDS SUMMARY | 2019-07-17 06:37 | XMS REPORT | Continuity of Care Document ---
:1935 External Reference #:[id number] Author Name Price Ledbetter MD Address [address] [place] [address] Problems Active Problems Provider Date Adult health [...] CPT Code Status Date Vaccine Lot # [id number] Given 06/08/2019 Shingrix - Shingles vaccine, Herpes Zoster [id number] 85802 Given 06/08/2019 Flu High Dose [id number] 52326 Given 01/18/2018 Flu High Dose 31560 Given 12/21/2016 Flu High Dose 19109 Given 01/30/2016 Flu High Dose 09320 Given 05/31/2014 Prevnar 13 47319 Given 04/10/2013 Tdap - Boostrix/Adacel 27068 Given 02/16/2013 Pneumovax - for >=2years - [...] H/L Range Note Urine Culture And 06/17/2019 [facility] Urine Culture SEE RESULT [address] [place] [address] [phone] CFM Urinalysis 06/17/2019 [facility] Urine 1.015 ( )- - Specific [place] Ua PH Test Strip 7.0 Ua WBC Trace Ua Protein Trace Urine Glucose QL Neg Urine Ketones QL Test Strip Trace Urine Bilirubin TTL QL T-Strip Small Urine Urobilinogen QN TS 1.0E.U/dL Urine Nitrite QL TS Neg Ua Occult Blood Neg CBC Auto 06/17/2019 [facility] White Blood 6.9 10^3/uL Normal 3.5-10.[address] [place] [address] [phone] Red Blood Count 4.80 10^6/uL Normal 4.18-5.48 [...] Blood Cells % 0.1 Comp Metabolic 06/17/2019 [facility] Sodium 137 mmol/L Normal 135-[address] [place] [address] [phone] Potassium 4.1 mmol/L Normal 3.5-5.0 Chloride 99 [...] Egfr 73.3 >60 2 Laboratory test 06/17/2019 [facility] B-Type 132 pg/mL High <= 100 [address] [address] Peptide BNP [phone] Folic Acid (Folate) 6.46 ng/mL >3.99 4 Vitamin B12 817 pg/mL Normal 180-914 5 1 SEE RESULT BELOW Name: ALBERT LI : [address]: Price Ledbetter MD Acct: [id number] Unit: [id number] AGE: 83 Location: [facility] Re06/17/19 SEX: M Status: REG REF SPEC: [id number] ISIDRO: 06/17/19-[address]: Price Ledbetter MD REQ: [id number] RECD: 06/17/19 STATUS: COMP _ SOURCE: URINE SPDESC: ORDERED: Urine Culture COMMENTS: [id number] Urine Source: Random Procedure Result Reported Site Urine Culture Final 06/18/19- 1437 ML No Growth (<1,000 CFU/mL) * ML - Main Lab . END OF REPORT DEPARTMENT OF PATHOLOGY, [address] [place] [address] Onesimo Miramontes M.D. Director [facility] # [id number] 2 Because ethnic data is not always [...] 5 Kidney failure <15 (or dialysis) 3 [id number] 4 [id number] 5 Normal Range 180 to 914 Indeterminate Range 145 to 180 Deficient Range <145 Procedures Date Code Description Status 06/17/2019 13652 Electrocardiogram Complete Completed 06/11/2019 99091 Brief Emotional/Behav Assessment W/ Scoring Doc Per Completed Standard Inst 06/08/2019 62800 Visual Screening Test Of Visual Acuity, Quantitative, Completed Bilateral Medical Devices Description No Information Available Encounters Type Date Location Provider Dx Diagnosis Office Visit 06/11/2019 3:00p CFM Main Price Ledbetter MD M46.1 Sacroiliitis , not elsewhere classified Assessments Date Code Description Provider 06/17/2019 R53.83 Other fatigue Price Ledbetter MD 06/17/2019 R91.8 Other nonspecific abnormal finding of lung field Price Ledbetter MD 06/17/2019 R41.82 Altered mental status, unspecified Price Ledbetter MD 06/11/2019 M46.1 Sacroiliitis, not elsewhere classified Price Ledbetter MD 06/08/2019 Z00.00 Encounter for general adult medical examination Price Ledbetter MD without abnormal findings Plan of Treatment 06/17/2019 - Price Ledbetter, MDR53.83 Other ablakmiE19.8 Other nonspecific abnormal finding of lung fieldNew Xrays:Chest 2 Views, Ordered: 06/17/19R41.82 Altered mental status, unspecified Functional Status Description No Information Available Mental Status Description No Information Available Referrals Refer to Reason for Referral Status Appt Date [facility], ongoing hoarseness for past several Sent 00/ [facility] months [address] [place] [address] [phone]
--- OUTSIDE RECORDS SUMMARY | 2019-07-17 06:37 | XMS REPORT | Continuity of Care Document ---
:1935 External Reference #:[id number] Author Name Price Ledbetter MD (transmitted by agent of provider [facility]) Address [address] [place] [address] Care Team Providers Name Role Phone Lj Garcia MD - Cardiovascular Care Team Information Needle Straightener Unavailable Disease Problems Active Problems Provider Date [...] CPT Code Status Date Vaccine Lot # [id number] Given 06/08/2019 Shingrix - Shingles vaccine, Herpes Zoster [id number] 24745 Given 06/08/2019 Flu High Dose [id number] 56684 Given 01/18/2018 Flu High Dose 04985 Given 12/21/2016 Flu High Dose 70872 Given 01/30/2016 Flu High Dose 07761 Given 05/31/2014 Prevnar 13 45747 Given 04/10/2013 Tdap - Boostrix/Adacel 45192 Given 02/16/2013 Pneumovax - for >=2years - [...] H/L Range Note Urine Culture And 06/17/2019 [facility] Urine Culture SEE RESULT [address] [place] [address] [phone] CFM Urinalysis 06/17/2019 [facility] Urine 1.015 ( )- - Specific [place] Ua PH Test Strip 7.0 Ua WBC Trace Ua Protein Trace Urine Glucose QL Neg Urine Ketones QL Test Strip Trace Urine Bilirubin TTL QL T-Strip Small Urine Urobilinogen QN TS 1.0E.U/dL Urine Nitrite QL TS Neg Ua Occult Blood Neg CBC Auto 06/17/2019 [facility] White Blood 6.9 10^3/uL Normal 3.5-10.[address] [place] [address] [phone] Red Blood Count 4.80 10^6/uL Normal 4.18-5.48 [...] Blood Cells % 0.1 Comp Metabolic 06/17/2019 [facility] Sodium 137 mmol/L Normal 135-[address] [place] [address] [phone] Potassium 4.1 mmol/L Normal 3.5-5.0 Chloride 99 [...] Egfr 73.3 >60 2 Laboratory test 06/17/2019 [facility] B-Type 132 pg/mL High <= 100 [address] [place] [address] Peptide BNP [phone] Folic Acid (Folate) 6.46 ng/mL >3.99 4 Vitamin B12 817 pg/mL Normal 180-914 5 1 SEE RESULT BELOW Name: ALBERT MURILLO : [address]: Price Ledbetter MD Acct: [id number] Unit: [id number] AGE: 83 Location: [facility] Re06/17/19 SEX: M Status: REG REF SPEC: [id number] ISIDRO: 06/17/19-1419 [facility] DR: Price Ledbetter MD REQ: [id number] RECD: 06/17/19 STATUS: COMP _ SOURCE: URINE SPDESC: ORDERED: Urine Culture COMMENTS: [id number] Urine Source: Random Procedure Result Reported Site Urine Culture Final 06/18/19- 1437 ML No Growth (<1,000 CFU/mL) * ML - Main Lab . END OF REPORT DEPARTMENT OF PATHOLOGY, [address] [place] [address] Onesimo Miramontes M.D. Director [facility] # [id number] 2 Because ethnic data is not always [...] 5 Kidney failure <15 (or dialysis) 3 [id number] 4 [id number] 5 Normal Range 180 to 914 Indeterminate Range 145 to 180 Deficient Range <145 Procedures Date Code Description Status 06/17/2019 81332 Electrocardiogram Complete Completed 06/08/2019 34982 Visual Screening Test Of Visual Acuity, Quantitative, Completed Bilateral Medical Devices Description No Information Available Encounters Type Date Location Provider Dx Diagnosis Office Visit 06/17/2019 1:15p [facility] Alden Ledbetter MD I50.30 Unspecified diastolic (congestive) heart failure R53.83 Other fatigue R91.8 Other nonspecific abnormal finding of lung field R41.82 Altered mental status, unspecified Office Visit 06/11/2019 3:00p LUIZ Ledbetter MD M46.1 Sacroiliitis , not elsewhere classified Z13.31 Encounter for screening for depression Assessments Date Code Description Provider 06/17/2019 I50.30 Unspecified diastolic (congestive) heart failure Price Ledbetter MD 06/17/2019 R53.83 Other fatigue Price Ledbetter MD 06/17/2019 R91.8 Other nonspecific abnormal finding of lung field Price Ledbetter MD 06/17/2019 R41.82 Altered mental status, unspecified Price Ledbetter MD 06/11/2019 M46.1 Sacroiliitis, not elsewhere classified Price Ledbetter MD 06/11/2019 Z13.31 Encounter for screening for depression Price Ledbetter MD 06/08/2019 Z00.00 Encounter for general adult medical examination Price Ledbetter MD without abnormal findings 06/08/2019 Z01.00 Encounter for examination of eyes and vision Price Ledbetter MD without abnormal findings 06/08/2019 Z23 Encounter for immunization Price Ledbetter MD Plan of Treatment 06/17/2019 - Price Ledbetter MDI50.30 Unspecified diastolic (congestive) heart rsluwxbY36.83 Other oujzeumA45.8 Other nonspecific abnormal finding of lung fieldNew Xrays:Chest 2 Views, Ordered: 06/17/19R41.82 Altered mental status, unspecified Functional Status Description No Information Available Mental Status Description No Information Available Referrals Refer to Reason for Referral Status Appt Date Lj Garcia MD Abnormal EKG, rales, elevated BNP and Sent mild fatigue. Started on lisinopril [address]mg. [address] [place] [address] [phone] [facility] ongoing hoarseness for past [facility] several months [address] [place] [address] [phone]
--- OUTSIDE RECORDS SUMMARY | 2019-07-17 06:37 | XMS REPORT | Continuity of Care Document ---
:1935 External Reference #:[id number] Author Name Price Ledbetter MD Address [address] [place] [address] Problems Active Problems Provider Date Adult health [...] CPT Code Status Date Vaccine Lot # [id number] Given 06/08/2019 Shingrix - Shingles vaccine, Herpes Zoster [id number] 12849 Given 06/08/2019 Flu High Dose [id number] 35824 Given 01/18/2018 Flu High Dose 70682 Given 12/21/2016 Flu High Dose 66152 Given 01/30/2016 Flu High Dose 73967 Given 05/31/2014 Prevnar 13 42548 Given 04/10/2013 Tdap - Boostrix/Adacel 91528 Given 02/16/2013 Pneumovax - for >=2years - [...] H/L Range Note Urine Culture And 06/17/2019 [facility] Urine Culture SEE RESULT [address] [place] [address] [phone] CFM Urinalysis 06/17/2019 [facility] Urine 1.015 ( )- - Specific [place] Ua PH Test Strip 7.0 Ua WBC Trace Ua Protein Trace Urine Glucose QL Neg Urine Ketones QL Test Strip Trace Urine Bilirubin TTL QL T-Strip Small Urine Urobilinogen QN TS 1.0E.U/dL Urine Nitrite QL TS Neg Ua Occult Blood Neg CBC Auto 06/17/2019 [facility] White Blood 6.9 10^3/uL Normal 3.5-10.[address] [place] [address] [phone] Red Blood Count 4.80 10^6/uL Normal 4.18-5.48 [...] Blood Cells % 0.1 Comp Metabolic 06/17/2019 [facility] Sodium 137 mmol/L Normal 135-[address] [place] [address] [phone] Potassium 4.1 mmol/L Normal 3.5-5.0 Chloride 99 [...] Egfr 73.3 >60 2 Laboratory test 06/17/2019 [facility] B-Type 132 pg/mL High <= 100 [address] [place] [address] Peptide BNP [phone] Folic Acid (Folate) 6.46 ng/mL >3.99 4 Vitamin B12 817 pg/mL Normal 180-914 5 1 SEE RESULT BELOW Name: ALBERT MURILLO : [address]: Price Ledbetter MD Acct: [id number] Unit: [id number] AGE: 83 Location: [facility] Re06/17/19 SEX: M Status: REG REF SPEC: [id number] ISIDRO: 06/17/19-[address]: Price Ledbetter MD REQ: [id number] RECD: 06/17/19 STATUS: COMP _ SOURCE: URINE SPDESC: ORDERED: Urine Culture COMMENTS: [id number] Urine Source: Random Procedure Result Reported Site Urine Culture Final 06/18/19- 1437 ML No Growth (<1,000 CFU/mL) * - Main Lab . END OF REPORT DEPARTMENT OF PATHOLOGY, [address] [place] [address] Onesimo Miramontes M.D. Director [facility] # [id number] 2 Because ethnic data is not always [...] 5 Kidney failure <15 (or dialysis) 3 [id number] 4 [id number] 5 Normal Range 180 to 914 Indeterminate Range 145 to 180 Deficient Range <145 Procedures Date Code Description Status 06/17/2019 54147 Electrocardiogram Complete Completed 06/11/2019 20823 Brief Emotional/Behav Assessment W/ Scoring Doc Per Completed Standard Inst 06/08/2019 49117 Visual Screening Test Of Visual Acuity, Quantitative, [...] 06/11/2019 M46.1 Sacroiliitis, not elsewhere classified Price Ldebetter MD 06/08/2019 Z00.00 Encounter for general adult medical examination Price Ledbetter MD without abnormal findings Plan of Treatment 06/17/2019 - Price Ledbetter MDI50.30 Unspecified diastolic (congestive) heart zrnafsyX56.83 Other eisjyoxL18.8 Other nonspecific abnormal finding of lung fieldNew Xrays:Chest 2 Views, Ordered: 06/17/19R41.82 Altered mental status, unspecified Functional Status Description No Information Available Mental Status Description No Information Available Referrals Refer to Reason for Referral Status Appt Date Lj Garcia MD Abnormal EKG, rales, elevated BNP and Created mild fatigue. Started on lisinopril 5mg. [address] [place] [address] [phone] [facility] ongoing hoarseness for past [facility] several months [address] [place] [address] [phone]
--- OUTSIDE RECORDS SUMMARY | 2019-07-17 06:37 | XMS REPORT | Continuity of Care Document ---
:1935 External Reference #:[id number] Author Name Price Ledbetter MD (transmitted by agent of provider Miroslava Barrow) Address [address] [place] [address] Problems Active Problems Provider Date Adult health [...] Medications SIG Qnty Indications Ordering Provider Date Vitamin C 1 twice daily 60tabs Unknown 06/07/2014 500mg Tablets Oral Vitamin B-12 1 Daily Oral 30tabs Unknown 06/04/2014 100mcg Tablets Medications Administered in Office Medication SIG Qnty Indications Ordering Provider Date Injection Triamcinolone Acetonide Unknown 05/03/2017 Per 10 MG Injection Inject/Drain Arthrocentesis Major Unknown 05/03/2017 Joint/Bursa/Ganglion Cyst Injection Immunizations CPT Code Status Date Vaccine Lot # 31824 Given 06/08/2019 Shingrix - Shingles vaccine, Herpes Zoster [id number] 13814 Given 06/08/2019 Flu High Dose [id number] 35618 Given 01/18/2018 Flu High Dose 46618 Given 12/21/2016 Flu High Dose 68345 Given 01/30/2016 Flu High Dose 54714 Given 05/31/2014 Prevnar 13 66945 Given 04/10/2013 Tdap - Boostrix/Adacel 31329 Given 02/16/2013 Pneumovax - for >=2years - [id number] Vital Signs Date Vital Result Comment 06/11/2019 3:09pm BP Systolic 130 mmHg BP Diastolic 62 mmHg Height 67.5 inches 5'7.50" Weight 159.00 lb Heart Rate 75 /min Body Temperature 97.0 F O2 % BldC Oximetry 95 % room air BMI (Body Mass Index) 24.5 kg/m2 06/08/2019 11:54am BP Systolic 132 mmHg LT arm BP Diastolic 74 mmHg LT arm Height 67.5 inches 5'7.50" Weight 159.00 lb Heart Rate 91 /min Body Temperature 97.4 F O2 % BldC Oximetry 95 % room air BMI (Body Mass Index) 24.5 kg/m2 Right Visual Acuity Distance 20/20 Left Visual Acuity Distance 20/40 Both Visual Acuity Distance 20/20 Results Description No Information Available Procedures Date Code Description Status 06/11/2019 23412 Brief Emotional/Behav Assessment W/ Scoring Doc Per Completed Standard Inst 06/08/2019 39318 Visual Screening Test Of Visual Acuity, Quantitative, Completed Bilateral Medical Devices Description No Information Available Encounters Type Date Location Provider Dx Diagnosis Office Visit 06/11/2019 3:00p CFM Main Price Ledbetter MD M46.1 Sacroiliitis , not elsewhere classified Assessments Date Code Description Provider 06/11/2019 M46.1 Sacroiliitis, not elsewhere classified Price Ledbetter MD Plan of Treatment 06/11/2019 - Price Ledbetter, MDM46.1 Sacroiliitis, not elsewhere classifiedComments :Low back pain, sacro-iliac pain on left side1) Try taking wallet out of back pocket. It makes you sit differently2) Tylenol - either 325mg (max 12 pills a day) or 500mg (max 8 pills a day) this is easier on the stomach but harder on the liver3) Ibuprofen and Alleve/Naproxen are in the same family so don't take both at the same time Alleve lasts longer - max dose is two pills twice a day 4) Don't forget heat and massageconsider PT - you have paper for this alreadyThere is PT close to your house near the [facility] and [facility]5) Follow up if pain is worse or if you have urine symptoms or leg weakness Functional Status Description No Information Available Mental Status Description No Information Available Referrals Refer to Reason for Referral Status Appt Date [facility], ongoing hoarseness for past several Sent [facility] months [address] [place] [address] [phone]
--- OUTSIDE RECORDS SUMMARY | 2019-07-17 06:37 | XMS REPORT | Continuity of Care Document ---
:1935 External Reference #:[id number] Author Name Price Ledbetter MD (transmitted by agent of provider [facility]) Address [address] [place] [address] Care Team Providers Name Role Phone Lj Garcia MD - Cardiovascular Care Team Information Population Health Coach Unavailable Disease Problems Active Problems Provider Date [...] CPT Code Status Date Vaccine Lot # 13341 Given 06/08/2019 Shingrix - Shingles vaccine, Herpes Zoster [id number] 59703 Given 06/08/2019 Flu High Dose [id number] 92413 Given 01/18/2018 Flu High Dose 50372 Given 12/21/2016 Flu High Dose 36958 Given 01/30/2016 Flu High Dose 33194 Given 05/31/2014 Prevnar 13 88842 Given 04/10/2013 Tdap - Boostrix/Adacel 04302 Given 02/16/2013 Pneumovax - for >=2years - [...] H/L Range Note Urine Culture And 06/17/2019 [facility] Urine Culture SEE RESULT [address] [place] [address] [phone] CFM Urinalysis 06/17/2019 [facility] Urine 1.015 ( )- - Specific [place] Ua PH Test Strip 7.0 Ua WBC Trace Ua Protein Trace Urine Glucose QL Neg Urine Ketones QL Test Strip Trace Urine Bilirubin TTL QL T-Strip Small Urine Urobilinogen QN TS 1.0E.U/dL Urine Nitrite QL TS Neg Ua Occult Blood Neg CBC Auto 06/17/2019 [facility] White Blood 6.9 10^3/uL Normal 3.5-10.[address] [place] [address] [phone] Red Blood Count 4.80 10^6/uL Normal 4.18-5.48 [...] Blood Cells % 0.1 Comp Metabolic 06/17/2019 [facility] Sodium 137 mmol/L Normal 135-[address] [place] [address] [phone] Potassium 4.1 mmol/L Normal 3.5-5.0 Chloride 99 [...] Egfr 73.3 >60 2 Laboratory test 06/17/2019 [facility] B-Type 132 pg/mL High <= 100 [address] [place] [address] Peptide BNP [phone] Folic Acid (Folate) 6.46 ng/mL >3.99 4 Vitamin B12 817 pg/mL Normal 180-914 5 1 SEE RESULT BELOW Name: ALBERT MURILLO : [address]: Price Ledbetter MD Acct: [id number] Unit: [id number] AGE: 83 Location: [facility] Re06/17/19 SEX: M Status: REG REF SPEC: [id number] ISIDRO: 06/17/19-1419 [facility] DR: Price Ledbetter MD REQ: [id number] RECD: 06/17/19 STATUS: COMP _ SOURCE: URINE SPDESC: ORDERED: Urine Culture COMMENTS: [id number] Urine Source: Random Procedure Result Reported Site Urine Culture Final 06/18/19- 1437 ML No Growth (<1,000 CFU/mL) * ML - Main Lab . END OF REPORT DEPARTMENT OF PATHOLOGY, [address] [place] [address] Onesimo Miramontes M.D. Director [facility] # [id number] 2 Because ethnic data is not always [...] 5 Kidney failure <15 (or dialysis) 3 [id number] 4 [id number] 5 Normal Range 180 to 914 Indeterminate Range 145 to 180 Deficient Range <145 Procedures Date Code Description Status 06/17/2019 00975 Electrocardiogram Complete Completed 06/08/2019 42480 Visual Screening Test Of Visual Acuity, Quantitative, Completed Bilateral Medical Devices Description No Information Available Encounters Type Date Location Provider Dx Diagnosis Office Visit 06/17/2019 1:15p [facility] Alden Ledbetter MD I50.30 Unspecified diastolic (congestive) [...] Price Ledbetter MDI50.30 Unspecified diastolic (congestive) heart fdjvwvxJ44.83 Other ccfcupkL33.8 Other nonspecific abnormal finding of lung fieldNew Xrays:Chest 2 Views, Ordered: 06/17/19R41.82 Altered mental status, unspecified Functional Status Description No Information Available Mental Status Description No Information Available Referrals Refer to Reason for Referral Status Appt Date Lj Garcia MD Abnormal EKG, rales, elevated BNP and Sent mild fatigue. Started on lisinopril 5mg. [address] [place] [address] [phone] [facility] ongoing hoarseness for past [facility] several months [address] [place] [address] [phone]
--- OUTSIDE RECORDS SUMMARY | 2019-07-17 06:37 | XMS REPORT | Continuity of Care Document ---
:1935 External Reference #:[id number] Author Name Price Ledbetter MD (transmitted by agent of provider Rajani Cruz) Address [address] [place] [address] Problems Active Problems Provider Date Adult health [...] CPT Code Status Date Vaccine Lot # [id number] Given 06/08/2019 Shingrix - Shingles vaccine, Herpes Zoster [id number] 21071 Given 06/08/2019 Flu High Dose [id number] 12228 Given 01/18/2018 Flu High Dose 08493 Given 12/21/2016 Flu High Dose 51913 Given 01/30/2016 Flu High Dose 76538 Given 05/31/2014 Prevnar 13 03682 Given 04/10/2013 Tdap - Boostrix/Adacel 80885 Given 02/16/2013 Pneumovax - for >=2years - [...] Date Facility Test Result H/L Range Note CFM Urinalysis 06/17/2019 [facility] Urine Specific 1.015 ( )- - [place] Ua PH Test Strip 7.0 Ua WBC Trace Ua Protein Trace Urine Glucose QL Neg Urine Ketones QL Test Strip Trace Urine Bilirubin TTL QL T-Strip Small Urine Urobilinogen QN TS 1.0E.U/dL Urine Nitrite QL TS Neg Ua Occult Blood Neg Laboratory test 06/17/2019 [facility] B-Type Natriuretic < pending> finding [address] [place] [address] [phone] Procedures Date Code Description Status 06/17/2019 09097 Electrocardiogram Complete Completed 06/11/2019 84166 Brief Emotional/Behav Assessment W/ Scoring Doc Per Completed Standard Inst 06/08/2019 13826 Visual Screening Test Of Visual Acuity, Quantitative, [...] Plan of Treatment 06/17/2019 - Price Ledbetter MDR53.83 Other xmmjrvjD72.8 Other nonspecific abnormal finding of lung fieldNew Xrays:Chest 2 Views, Ordered: 06/17/19R41.82 Altered mental status, unspecified Functional Status Description No Information Available Mental Status Description No Information Available Referrals Refer to Reason for Referral Status Appt Date [facility], ongoing hoarseness for past several Sent 00/ [facility] months 2 [facility] [place] [address] [phone]
--- OUTSIDE RECORDS SUMMARY | 2019-07-17 06:37 | XMS REPORT | Continuity of Care Document ---
:1935 External Reference #:[id number] Author Name Price Ledbetter MD (transmitted by agent of provider Zaira Jones) Address [address] [place] [address] Problems Active Problems Provider Date Adult health [...] CPT Code Status Date Vaccine Lot # [id number] Given 06/08/2019 Shingrix - Shingles vaccine, Herpes Zoster [id number] 65757 Given 06/08/2019 Flu High Dose [id number] Given 01/18/2018 Flu High Dose 37477 Given 12/21/2016 Flu High Dose 27015 Given 01/30/2016 Flu High Dose 22274 Given 05/31/2014 Prevnar 13 59259 Given 04/10/2013 Tdap - Boostrix/Adacel 02983 Given 02/16/2013 Pneumovax - for >=2years - [...] Result H/L Range Note CFM Urinalysis 06/17/2019 [facility] Urine Specific 1.015 ( )- - Hinkle Ua PH Test Strip 7.0 Ua WBC Trace Ua Protein Trace Urine Glucose QL Neg Urine Ketones QL Test Strip Trace Urine Bilirubin TTL QL T-Strip Small Urine Urobilinogen QN TS 1.0E.U/dL Urine Nitrite QL TS Neg Ua Occult Blood Neg Laboratory test 06/17/2019 [facility] B-Type Natriuretic < pending> finding [address] [place] [address] [phone] Procedures Date Code Description Status 06/11/2019 25119 Brief Emotional/Behav Assessment W/ Scoring Doc Per Completed Standard Inst 06/08/2019 41993 Visual Screening Test Of Visual Acuity, Quantitative, [...] MD without abnormal findings Plan of Treatment No Information Available Functional Status Description No Information Available Mental Status Description No Information Available Referrals Refer to Reason for Referral Status Appt Date [facility], ongoing hoarseness for past several Sent [facility] months [facility] [place] [address] [phone]
--- OUTSIDE RECORDS SUMMARY | 2019-07-17 06:37 | XMS REPORT | Continuity of Care Document ---
:1935 External Reference #:[id number] Author Name Lj Garcia M.D. (transmitted by agent of provider Ifrah Tate) Address [address] [address] Care Team Providers Name Role Phone Price Ledbetter MD - Family Medicine Care Team Information Licensed Mortgage Loan Officer [phone] Problems Active Problems Provider Date Congenital spondylolisthesis Abdoulaye Andujar M.D. Onset: 04/15/2008 Rheumatic disease of tricuspid valve Lj Garcia M.D. Onset: 04/09 Mitral valve disorder Lj Garcia M.D. Onset: 04/09/2013 Aortic valve disorder Lj Garcia M.D. Onset: 04/09/2013 Hyperlipidemia Lj Garcia M.D. Onset: 04/09/2013 Mixed hyperlipidemia Lj Garcia M.D. Onset: 02/25/2013 Essential hypertension Lj Garcia M.D. Onset: 02/25/2013 Chest pain Lj Garcia M.D. Onset: 02/25/2013 Dyspnea Lj Garcia M.D. Onset: 02/25/2013 Electrocardiogram abnormal Lj Garcia M.D. Onset: 02/25/2013 Social History Type Date Description Comments Sex Unknown ETOH Use Occasionally consumes alcohol Tobacco Use Start: Unknown End: Patient is a former quit 1973, 15 years Unknown smoker 1 PPD Recreational Drug Use Denies Drug Use Smoking Status Reviewed: 07/02/19 Patient is a former quit 1973, 15 years smoker 1 PPD Exercise Type/Frequency Exercises regularly Allergies, Adverse Reactions, Alerts Active Allergies Reaction Severity Comments Date Aricept 07/30/2018 Chlorthalidone 07/30/2018 Inactive Allergies NKDA 01/22/2013 Medications Active Medications SIG Qnty Indications Ordering Provider Date Ibuprofen 200 400-600mg every 6 Unknown 200mg hours as needed Tablets for pain. Medications Administered in Office Medication SIG Qnty Indications Ordering Provider Date Depomedrol 40MG Cassy Aguero M.D. 07/30/2018 Injection Depomedrol 80MG Cassy Aguero M.D. 01/22/2013 Injection Immunizations Description No Information Available Vital Signs Date Vital Result Comment 07/02/2019 2:53pm Height 70 inches 5'10" Weight 158.00 lb with shoes Heart Rate 72 /min BP Systolic Sitting 130 mmHg Ra BP Diastolic Sitting 80 mmHg Ra BP Systolic Standing 130 mmHg Ra BP Diastolic Standing 78 mmHg Ra BMI (Body Mass Index) 22.7 kg/m2 Ejection Fraction 60-65% Echo 03/03/13 07/30/2018 11:33am Height 70 inches 5'10" Weight 170.00 lb Heart Rate 78 /min BP Systolic 120 mmHg BP Diastolic 74 mmHg Pain Level 0 BMI (Body Mass Index) 24.4 kg/m2 Results Description No Information Available Procedures Date Code Description Status 07/02/2019 19860 EKG Tracing & Interpretation Completed Medical Devices Description No Information Available Encounters Type Date Location Provider Dx Diagnosis Office Visit 07/02/2019 [facility] Lj Finch I10 Essential ( primary) 3:20p Of More Garcia M.D. hypertension E78.5 Hyperlipidemia, unspecified R94.31 Abnormal electrocardiogram [ECG] [EKG] I35.1 Nonrheumatic aortic (valve) insufficiency I34.0 Nonrheumatic mitral (valve) insufficiency I44.0 Atrioventricular block, first degree I44.4 Left anterior fascicular block Assessments Date Code Description Provider 07/02/2019 I10 Essential (primary) hypertension Lj Garcia M.D. 07/02/2019 E78.5 Hyperlipidemia, unspecified Lj Garcia M.D. 07/02/2019 R94.31 Abnormal electrocardiogram [ECG] [EKG] Lj Garcia M.D. 07/02/2019 I35.1 Nonrheumatic aortic (valve) Lj Garcia M.D. insufficiency 07/02/2019 I34.0 Nonrheumatic mitral (valve) Lj Garcia M.D. insufficiency 07/02/2019 I44.0 Atrioventricular block, first degree Lj Garcia M.D. 07/02/2019 I44.4 Left anterior fascicular block Lj Garcia M.D. Plan of Treatment 07/02/2019 - Lj Garcia M.D.I10 Essential (primary) hypertensionNew Labs:CBC Auto Diff, Ordered: 07/02/19Comp Metabolic Panel, Ordered: Cortisol, Ordered: 07/02/19Magnesium, Ordered: 07/02/19TSH (Thyroid Stim Horm) , Ordered: 07/02/19Vitamin B12 And Folate Serum, Ordered: ,25 Dihydroxy Vitamin D, Ordered: 07/02/19Follow up:ov July 2019 to discuss all lxqdrT24.5 Hyperlipidemia, hfkersyduavN45.31 Abnormal electrocardiogram [ECG] [ EKG]New Orders:Echocardiogram, Ordered: 07/02/19I35.1 Nonrheumatic aortic (valve ) svgmurjevemvfV51.0 Nonrheumatic mitral (valve) aghsbkablzumjA71.0 Atrioventricular block, first degreeNew Orders:24 hour holter monitor, Ordered: 07/02/19I44.4 Left anterior fascicular block Functional Status Description No Information Available Mental Status Description No Information Available Referrals Description No Information Available
--- OUTSIDE RECORDS SUMMARY | 2019-07-17 06:37 | XMS REPORT | Continuity of Care Document ---
:1935 External Reference #:[id number] Author Name Price Ledbetter MD (transmitted by agent of provider Reid Zarate) Address [address] [place] [address] Problems Active Problems Provider Date Adult health examination Onset: 04/17/2018 Gastroesophageal reflux disease Onset: 10/29/2016 Pneumonia Onset: 07/20/2015 Tubular adenoma of colon Onset: 10/26/2014 Dementia Onset: 04/22/2014 Raynaud's phenomenon Onset: 02/12/2014 Benign essential hypertension Onset: 04/17/2018 Social History Type Date Description Comments Sex Unknown Tobacco Use Start: Unknown End: Unknown Patient is a former smoker quit 1972 Smoking Status Reviewed: 06/08/19 Patient is a former smoker quit 1972 [...] CPT Code Status Date Vaccine Lot # [id number] Given 06/08/2019 Shingrix - Shingles vaccine, Herpes Zoster [id number] 40009 Given 06/08/2019 Flu High Dose [id number] 61515 Given 01/18/2018 Flu High Dose 15796 Given 12/21/2016 Flu High Dose 92613 Given 01/30/2016 Flu High Dose 64555 Given 05/31/2014 Prevnar 13 33358 Given 04/10/2013 Tdap - Boostrix/Adacel 15627 Given 02/16/2013 Pneumovax - for >=2years - PPSV23 Vital Signs Date Vital Result Comment 06/08/2019 11:54am BP Systolic 132 mmHg LT arm BP Diastolic 74 mmHg LT arm Height 67.5 inches 5'7.50" Weight 159.00 lb Heart Rate 91 /min Body Temperature 97.4 F O2 % BldC Oximetry 95 % room air BMI (Body Mass Index) 24.5 kg/m2 Right Visual Acuity Distance 20/20 Left Visual Acuity Distance 20/40 Both Visual Acuity Distance 20/20 09/30/2018 11:47am BP Systolic 140 mmHg Weight 164.00 lb Heart Rate 65 /min Body Temperature 98.6 F O2 % BldC Oximetry 98 % Results Description No Information Available Procedures Date Code Description Status 06/08/2019 99133 Visual Screening Test Of Visual Acuity, Quantitative, Completed Bilateral Medical Devices Description No Information Available Encounters Description No Information Available Assessments Description No Information Available Plan of Treatment No Information Available Functional Status Description No Information Available Mental Status Description No Information Available Referrals Description No Information Available
[2019-07-17] MEDS ORDERED: HYDROcodone/ACETAMIN 5-325 MG* 1 TAB PO ONE (06:46)
--- NOTE | 2019-07-17 06:59 | ED ---
Back Pain - HPI Summary HPI Summary: This pt is an 83yo M presenting to the ED with R sided rib and mid back pain after a fall this morning around 5am. Patient states he tripped over a lamp on his way to the restroom and fell onto his R side. He believes he fell with an outstretched arm and landed to the R midback and ribs. Denies any shortness of breath or abd pain. Denies n/v. States he wishes to not take a deep breath d/ t discomfort. Endorses pain just to the R rib radiating to the R paraspinal area of the mid back. Pt is not on blood thinners. Denies any pain to the abd. Denies pain to the RUQ on palpation. There is a very slight discoloration to the R rib, but pt states this may have been there prior to this morning. Denies hitting his head or LOC. Denies any other concerns. Pain is rated 9/10 to the R rib and R back area without pain otherwise. Ambulating well. - History of Current Complaint Chief Complaint: EDFall Stated Complaint: SIDE PAIN PER PT Time Seen by Provider: 07/17/19 06:30 Hx Obtained From: Patient Onset/Duration: Sudden Onset Onset/Duration: Started Hours Ago Timing: Constant Back Pain Location: Is Discrete @ - right rib and r upper back Severity Initially: Moderate Severity Currently: Moderate Pain Intensity: 7 Pain Scale Used: 0-10 Numeric Aggravating Symptom(s): Movement, Other - palpation Associated Signs And Symptoms: Positive: Bruising - very small area to the R ribs (2cm diameter) discoloration. Negative: Swelling, Redness - Allergies/Home Medications Allergies/Adverse Reactions: Allergies Allergy/AdvReac Type Severity Reaction Status Date / Time esomeprazole Allergy GI Upset Verified 07/17/19 06:30 Home Medications: Home Medications Ascorbic Acid TAB* [Vitamin C TAB*] 500 mg PO BID 03/19/13 [History Confirmed 10/02/18] Cholecalciferol TAB* [Vitamin D TAB*] 2,000 units PO DAILY 03/01/15 [History Confirmed 10/02/18] Multivitamins/Minerals TAB* [Theragran/minerals TAB*] 1 tab PO DAILY 03/01/15 [ History Confirmed 10/02/18] Simvastatin TAB(NF) [Zocor 20 MG (NF)] 20 mg PO DAILY 03/01/15 [History Confirmed 10/02/18] Cyanocobalamin (Vitamin B-12) [Vitamin B-12] 100 mcg PO DAILY 10/02/18 [History Confirmed 10/02/18] HYDROcodone/ACETAMIN 5-325 MG* [Cary 5-325 TAB*] 1 tab PO Q6H PRN #10 tab MDD 4 10/02/18 [Rx] Methocarbamol TAB* [Robaxin 500 MG TAB*] 500 mg PO TID PRN #12 tab 10/02/18 [Rx] methylPREDNISolone [Medrol Dosepak 4 MG*] 0 mg PO .SEE FERNANDO INSTRUCTION #1 fernando [Rx] HYDROcodone/ACETAMIN 5-325 MG* [Cary 5-325 TAB*] 1 tab PO Q4H PRN #24 tab MDD 6 07/17/19 [Rx] PMH/Surg Hx/FS Hx/Imm Hx Previously Healthy: Yes Endocrine/Hematology History: Denies: Hx Diabetes, Hx Thyroid Disease Cardiovascular History: Reports: Hx Angina, Hx Congestive Heart Failure, Hx Hypercholesterolemia, Hx Hypertension Denies: Hx Pacemaker/ICD Respiratory History: Denies: Hx Asthma, Hx Chronic Obstructive Pulmonary Disease (COPD) GI History: Denies: Hx Ulcer History: Denies: Hx Renal Disease Musculoskeletal History: Denies: Hx Rheumatoid Arthritis, Hx Osteoporosis Sensory History: Reports: Hx Contacts or Glasses Denies: Hx Hearing Aid Opthamlomology History: Reports: Hx Contacts or Glasses Psychiatric History: Denies: Hx Panic Disorder - Surgical History Surgery Procedure, Year, and Place: DETACHED RETINA - @ [facility] [place] - ORBIT XRAY DONE 2004 PRIOR TO MRI - CLEARED FOR ANY METAL PER DR RACHEL CATARACT - Immunization History Date of Tetanus Vaccine: Unsure Date of Influenza Vaccine: 01/2013 Hx Pertussis Vaccination: No Immunizations Up to Date: Yes Infectious Disease History: No Infectious Disease History: Denies: Hx Hepatitis, Hx Human Immunodeficiency Virus (HIV), Traveled Outside the [place] in Last 30 Days - Family History Known Family History: Negative: Cardiac Disease, Hypertension - Social History Occupation: Unemployed Lives: With Family Alcohol Use: None Alcohol Amount: 2 BEERS Hx Substance Use: No Substance Use Type: Reports: None Hx Tobacco Use: Yes Smoking Status (MU): Former Smoker Have You Smoked in the Last Year: No Review of Systems Negative: Fever, Chills, Fatigue, Skin Diaphoresis Negative: Chest Pain Negative: Shortness Of Breath, Cough Genitourinary: Negative Positive: no symptoms reported, see HPI Positive: Arthralgia - right rib and r mid back pain. Negative: Myalgia Positive: Bruising Positive: Headache All Other Systems Reviewed And Are Negative: Yes Physical Exam Triage Information Reviewed: Yes Vital Signs On Initial Exam: Initial Vitals Temp Pulse Resp BP Pulse Ox 97.1 F 85 16 156/101 95 07/17/19 06:20 07/17/19 06:20 07/17/19 06:20 07/17/19 06:20 07/17/19 06:20 Vital Signs Reviewed: Yes Appearance: Positive: Well-Appearing, No Pain Distress, Well-Nourished Skin: Positive: Warm, Skin Color Reflects Adequate Perfusion, Other - slight ecchymosis to the R rib area (2cm diameter) Eyes: Positive: EOMI, MAYCOL, Conjunctiva Clear Respiratory/Lung Sounds: Positive: Clear to Auscultation, Breath Sounds Present Cardiovascular: Positive: Pulses are Symmetrical in both Upper and Lower Extremities Musculoskeletal: Positive: Pain @ - right rib pain/r back pain Neurological: Positive: Speech Normal Psychiatric: Positive: Affect/Mood Appropriate AVPU Assessment: Alert Procedures - Sedation Patient Received Moderate/Deep Sedation with Procedure: No Diagnostics - Vital Signs Vital Signs Temp Pulse Resp BP Pulse Ox 07/17/19 06:20 97.1 F 85 16 156/101 95 - Laboratory Lab Statement: Any lab studies that have been ordered have been reviewed, and results considered in the medical decision making process. Back Pain Course/Dx - Course Course Of Treatment: On physical exam, patient is evaluated for R rib and R mid back pain. He has tenderness to the R paraspinal region as well as the R ribs throughout. No pain to the abdomen. No SOB or other diff breathing. Pt appears well and in NAD upon standing. When lying back in the stretcher, he endorses worsening pain to this back and rib area and states he is more comfortable sitting upright. There may be slight ecchymosis directly over the R side/rib, but pt states this could have been there prior to the fall. No pain throughout the abd on deep palpation. Good BS. Lungs CTA. RRR. Pt appears stable. He is given pain control and CT thoracic obtained to assess spinal or rib fracture to the area of concern. No signs of sxs of concern for intraabdominal bleeding or trauma. CT thoracic shows no evidence of acute pathology. Pt is dx with rib contusion and given strict return precautions. Given RX for pain control. - Diagnoses Provider Diagnoses: Rib contusion - Critical Care Time Critical Care Statement: Critical care time is provided exclusive of any time spent performing procedures. Discharge ED - Sign-Out/Discharge Documenting (check all that apply): Patient Departure - Discharge Plan Condition: Stable Disposition: HOME Prescriptions: HYDROcodone/ACETAMIN 5-325 MG* [Cary 5-325 TAB*] 1 tab PO Q4H PRN #24 tab MDD 6 PRN Reason: Pain Patient Education Materials: Rib Contusion (ED) Referrals: Price Ledbetter MD [Primary Care Provider] - Additional Instructions: Hydrocodone up to 6x daily as needed for severe pain - do not exceed this number , however you may take 2 at a time (only 3 x daily) Do not take tylenol while taking this medication Moist heat to the area will help with your symptoms As discussed, if you develop nausea, vomiting, blood in your urine or stool, unable to eat or you have difficulty breathing, you need to return to the ED immediately Get up and walk while taking deep breaths every hour to help to prevent pneumonia - Billing Disposition and Condition Condition: STABLE Disposition: Home
[2019-07-17 08:31] VITALS: BP 182/90
== END 2019-07-17 08:20 | disposition home or self-care (01) ==
LOC: ED 06:20
DX: S20.211A Contusion of right front wall of thorax, initial encounter (principal); W01.0XXA Fall on same level from slipping, tripping and stumbling without subsequent striking against object, initial encounter; Y92.9 Unspecified place or not applicable; E78.00 Pure hypercholesterolemia, unspecified; I11.0 Hypertensive heart disease with heart failure; R51 Headache; I50.9 Heart failure, unspecified; Z87.891 Personal history of nicotine dependence
CPT/HCPCS: 72128; 99283

== ENCOUNTER 2019-11-20 20:32 | Inpatient (IN) ==
[2019-11-20] MEDS ORDERED: Ondansetron 4 mg VIAL 2 MG/ML 2 ml VIAL IV ONE (22:37)
[2019-11-20] MEDS ORDERED: NS 0.9% 1000 ml BAG 1,000 ML IV ONE (22:37)
[2019-11-20 23:33] LABS: ABS Lymphocytes 0.5 10^3/ul (1.0-4.8); ABS Monocytes 0.7 10^3/ul (0-0.8); ABS Neutrophils 11.5 10^3/ul (1.5-7.7); Eosinophil % 0.2 %; Hematocrit 46 % (42-52); Hemoglobin 15.9 g/dL (14.0-18.0); Lymphocyte % 3.7 %; Mean Corpuscular HGB Conc 35 g/dL (31-36); Mean Corpuscular Hemoglobin 32 pg (27-31); Mean Corpuscular Volume 92 fL (80-94); Mean Platelet Volume 7.4 fL (7.4-10.4); Platelet Count 177 10^3/uL (150-450); Red Cell Distribution Width 14 % (10-15); White Blood Count 12.8 10^3/uL (3.5-10.8)
[2019-11-20 23:50] LABS: ALT 14 U/L (7-52); AST 23 U/L (13-39); Albumin 4.3 g/dL (3.2-5.2); Albumin/Globulin Ratio 1.2 (1-3); Alkaline Phosphatase 91 U/L (34-104); Anion Gap 10 mmol/L (2-11); Blood Urea Nitrogen 25 mg/dL (6-24); C Reactive Protein 4.22 mg/L (<8.01); CO2 Carbon Dioxide 33 mmol/L (22-32); Calcium 10.4 mg/dL (8.6-10.3); Chloride 90 mmol/L (101-111); EGFR African American 51.4 (>60); EGFR Non-African American 42.5 (>60); Globulin 3.6 g/dL (2-4); Glucose 128 mg/dL (70-100); Lipase 67 U/L (11.0-82.0); Potassium 4.4 mmol/L (3.5-5.0); Sodium 133 mmol/L (135-145); Total Protein 7.9 g/dL (6.4-8.9)
[2019-11-20 23:51] LABS: Troponin I 0.02 ng/mL (<0.03)
[2019-11-21 00:50] LABS: Alcohol, S < 10 mg/dL (<10)
[2019-11-21] MEDS ORDERED: Iodixanol (CONTRAST) 320 MG/ML 100 ML SDV IV ONE (01:10)
[2019-11-21 01:16] LABS: Activated Partial Thrombo Time 29.6 seconds (26.0-38.0); INR 0.98 (0.82-1.09)
[2019-11-21] MEDS ORDERED: NS 0.9% 1000 ml BAG 1,000 ML IV ONE (01:40)
[2019-11-21] MEDS ORDERED: Pantoprazole VIAL 40 MG VIAL IV ONE (01:40)
[2019-11-21 03:40] LABS: Hematocrit 41 % (42-52)
[2019-11-21] MEDS: Pantoprazole 80 mg in NS BAG 80 MG/250 ML BAG IV SCH ×2 (05:38→17:49)
[2019-11-21 07:06] LABS: ABS Eosinophils 0.1 10^3/ul (0-0.6); ABS Lymphocytes 1.1 10^3/ul (1.0-4.8); ABS Neutrophils 7.8 10^3/ul (1.5-7.7); Eosinophil % 0.7 %; Hematocrit 38 % (42-52); Hemoglobin 13.3 g/dL (14.0-18.0); Lymphocyte % 10.9 %; Mean Corpuscular HGB Conc 35 g/dL (31-36); Mean Corpuscular Hemoglobin 33 pg (27-31); Mean Corpuscular Volume 92 fL (80-94); Mean Platelet Volume 7.2 fL (7.4-10.4); Platelet Count 151 10^3/uL (150-450); Red Cell Distribution Width 13 % (10-15)
[2019-11-21 07:26] LABS: BUN/Creatinine Ratio 16.9 (8-20); Calcium 8.9 mg/dL (8.6-10.3); EGFR African American 63.5 (>60); EGFR Non-African American 52.5 (>60); Potassium 4.4 mmol/L (3.5-5.0)
[2019-11-21 16:53] LABS: Hematocrit 38 % (42-52); Hemoglobin 13.1 g/dL (14.0-18.0)
[2019-11-22] MEDS: Pantoprazole 80 mg in NS BAG 80 MG/250 ML BAG IV SCH ×3 (06:12→18:17)
[2019-11-22 06:51] LABS: ABS Basophils 0.1 10^3/ul (0-0.2); ABS Eosinophils 0.3 10^3/ul (0-0.6); ABS Lymphocytes 0.8 10^3/ul (1.0-4.8); ABS Monocytes 0.8 10^3/ul (0-0.8); ABS Neutrophils 6.1 10^3/ul (1.5-7.7); Eosinophil % 3.4 %; Hematocrit 39 % (42-52); Hemoglobin 13.2 g/dL (14.0-18.0); Lymphocyte % 9.9 %; Mean Corpuscular HGB Conc 34 g/dL (31-36); Mean Corpuscular Hemoglobin 32 pg (27-31); Mean Corpuscular Volume 94 fL (80-94); Mean Platelet Volume 7.1 fL (7.4-10.4); Platelet Count 137 10^3/uL (150-450); Red Blood Count 4.13 10^6 /uL (4.18-5.48); Red Cell Distribution Width 14 % (10-15); White Blood Count 8.1 10^3/uL (3.5-10.8)
[2019-11-22 07:11] LABS: BUN/Creatinine Ratio 12.5 (8-20); Calcium 8.9 mg/dL (8.6-10.3); EGFR African American 69.6 (>60); EGFR Non-African American 57.5 (>60); Potassium 4.5 mmol/L (3.5-5.0)
[2019-11-22] MEDS: Multivitamins/Minerals TAB PO SCH (09:25)
[2019-11-22 18:49] LABS: Urine Appearance Clear; Urine Bilirubin Negative (Negative); Urine Blood Negative (Negative); Urine Color Yellow; Urine Glucose Negative (Negative); Urine Ketones Trace (Negative); Urine Nitrite Negative (Negative); Urine Protein Negative (Negative); Urine Specific Gravity 1.006 (1.010-1.030); Urine Urobilinogen Negative (Negative)
[2019-11-23] MEDS: Pantoprazole 80 mg in NS BAG 80 MG/250 ML BAG IV SCH (04:23)
[2019-11-23 06:26] LABS: ABS Eosinophils 0.2 10^3/ul (0-0.6); ABS Lymphocytes 0.8 10^3/ul (1.0-4.8); ABS Neutrophils 7.5 10^3/ul (1.5-7.7); Hematocrit 40 % (42-52); Hemoglobin 13.6 g/dL (14.0-18.0); Lymphocyte % 8.8 %; Mean Corpuscular HGB Conc 34 g/dL (31-36); Mean Corpuscular Hemoglobin 32 pg (27-31); Mean Corpuscular Volume 93 fL (80-94); Mean Platelet Volume 7.3 fL (7.4-10.4); Platelet Count 144 10^3/uL (150-450); Red Blood Count 4.24 10^6 /uL (4.18-5.48); Red Cell Distribution Width 14 % (10-15); White Blood Count 9.5 10^3/uL (3.5-10.8)
[2019-11-23 06:46] LABS: BUN/Creatinine Ratio 11.8 (8-20); Calcium 8.9 mg/dL (8.6-10.3); EGFR African American 70.3 (>60); EGFR Non-African American 58.1 (>60); Potassium 4.3 mmol/L (3.5-5.0)
[2019-11-23] MEDS: Multivitamins/Minerals TAB PO SCH (07:05)
[2019-11-23] MEDS ORDERED: Midazolam 10 mg/10 ml VIAL 1 mg/ml 10 ml VIAL (10 mg) ONE (12:26)
[2019-11-23] MEDS ORDERED: fentaNYL 100 mcg/2 ml 50 MCG/ML VIAL ONE (12:26)
[2019-11-23] MEDS ORDERED: Nystatin SUSPENSION 100,000 UNITS/ML UDC PO SCH (21:00)
[2019-11-24] MEDS: Multivitamins/Minerals TAB PO SCH (09:49)
[2019-11-24] MEDS: Nystatin SUSPENSION 100,000 UNITS/ML UDC PO SCH ×4 (09:49→20:46)
[2019-11-24] MEDS: Ondansetron ODT 4 mg TAB 4 MG TAB SL PRN (10:07)
[2019-11-24 17:52] LABS: ABS Lymphocytes 0.6 10^3/ul (1.0-4.8); ABS Monocytes 1.2 10^3/ul (0-0.8); ABS Neutrophils 10.4 10^3/ul (1.5-7.7); Eosinophil % 0.2 %; Hematocrit 44 % (42-52); Hemoglobin 15.2 g/dL (14.0-18.0); Lymphocyte % 4.8 %; Mean Corpuscular HGB Conc 34 g/dL (31-36); Mean Corpuscular Hemoglobin 32 pg (27-31); Mean Corpuscular Volume 93 fL (80-94); Mean Platelet Volume 7.7 fL (7.4-10.4); Platelet Count 153 10^3/uL (150-450); Red Blood Count 4.75 10^6 /uL (4.18-5.48); Red Cell Distribution Width 14 % (10-15); White Blood Count 12.3 10^3/uL (3.5-10.8)
[2019-11-24] MEDS ORDERED: Ondansetron 4 mg VIAL 2 MG/ML 2 ml VIAL IV PRN (19:22)
[2019-11-24] MEDS ORDERED: Nystatin SUSPENSION 100,000 UNITS/ML UDC PO SCH (21:00)
[2019-11-25] MEDS: Ondansetron 4 mg VIAL 2 MG/ML 2 ml VIAL IV PRN (02:38)
[2019-11-25 07:38] LABS: ABS Lymphocytes 0.7 10^3/ul (1.0-4.8); ABS Neutrophils 9.5 10^3/ul (1.5-7.7); Hematocrit 44 % (42-52); Hemoglobin 15.3 g/dL (14.0-18.0); Lymphocyte % 6.2 %; Mean Corpuscular HGB Conc 35 g/dL (31-36); Mean Corpuscular Hemoglobin 32 pg (27-31); Mean Corpuscular Volume 92 fL (80-94); Mean Platelet Volume 7.1 fL (7.4-10.4); Platelet Count 148 10^3/uL (150-450); Red Blood Count 4.73 10^6 /uL (4.18-5.48); Red Cell Distribution Width 14 % (10-15); White Blood Count 11.3 10^3/uL (3.5-10.8)
[2019-11-25 07:54] LABS: BUN/Creatinine Ratio 17.8 (8-20); EGFR African American 51.1 (>60); EGFR Non-African American 42.2 (>60); Potassium 3.9 mmol/L (3.5-5.0)
[2019-11-25] MEDS: Nystatin SUSPENSION 100,000 UNITS/ML UDC PO SCH ×4 (09:40→19:46)
[2019-11-25] MEDS: Multivitamins/Minerals TAB PO SCH (09:40)
[2019-11-25] MEDS ORDERED: Pantoprazole VIAL 40 MG VIAL IV ONE (10:00)
[2019-11-25] MEDS: NS 0.9% 1000 ml BAG 1,000 ML IV SCH (16:01)
[2019-11-25] MEDS: Ondansetron ODT 4 mg TAB 4 MG TAB SL PRN (18:12)
[2019-11-26 05:54] LABS: BUN/Creatinine Ratio 19.1 (8-20); Calcium 9.8 mg/dL (8.6-10.3); EGFR African American 32.1 (>60); EGFR Non-African American 26.5 (>60); Potassium 3.8 mmol/L (3.5-5.0)
[2019-11-26] MEDS: NS 0.9% 1000 ml BAG 1,000 ML IV SCH (06:00)
[2019-11-26] MEDS ORDERED: NS 0.9% 1000 ml BAG 1,000 ML IV SCH (08:42)
[2019-11-26] MEDS: Multivitamins/Minerals TAB PO SCH ×2 (09:48→10:04)
[2019-11-26] MEDS: Nystatin SUSPENSION 100,000 UNITS/ML UDC PO SCH ×3 (09:51→17:56)
[2019-11-26] MEDS ORDERED: Metoclopramide 5 MG/ML VIAL (10 mg) IV PRN (10:11)
[2019-11-26] MEDS: Ondansetron 4 mg VIAL 2 MG/ML 2 ml VIAL IV PRN (10:52)
[2019-11-26] MEDS: Metoclopramide 5 MG/ML VIAL (10 mg) IV SCH ×2 (12:10→20:50)
[2019-11-26] MEDS: Morphine 2 MG/ML SYRINGE IV PRN (12:10)
[2019-11-26] MEDS ORDERED: Sucralfate 1 gm SUSP 1 GM/10 ML UDC PO SCH (16:30)
[2019-11-26] MEDS ORDERED: Lactated Ringers 1000 ml BAG 1,000 ML IV SCH (17:00)
[2019-11-26] MEDS: Pantoprazole VIAL 40 MG VIAL IV SCH (20:50)
[2019-11-27] MEDS ORDERED: Lactated Ringers 1000 ml BAG 1,000 ML IV SCH ×2 (00:01→11:00)
[2019-11-27 05:05] LABS: Urine Appearance Cloudy; Urine Bilirubin Negative (Negative); Urine Blood 3+ (Negative); Urine Color Amber; Urine Glucose Negative (Negative); Urine Ketones Negative (Negative); Urine Nitrite Negative (Negative); Urine Protein 2+(100 mg/dL) (Negative); Urine Specific Gravity 1.019 (1.010-1.030); Urine Urobilinogen Negative (Negative)
[2019-11-27 05:18] LABS: Urine Bacteria 1+ (Absent); Urine Red Blood Cell 3+(>10/hpf) (Absent); Urine Squamous Epithelial Cell Present (Absent); Urine White Blood Cell 3+(>20/hpf) (Absent)
[2019-11-27 05:24] LABS: Urine Creatinine Concentration 207.68 mg/dL
[2019-11-27 06:58] LABS: Calcium 9.5 mg/dL (8.6-10.3); EGFR African American 25.1 (>60); EGFR Non-African American 20.7 (>60); Potassium 4.4 mmol/L (3.5-5.0)
[2019-11-27] MEDS ORDERED: Sodium Phosphate ADULT ENEMA 133 ML BTL PR PRN (07:57)
[2019-11-27] MEDS: Lactated Ringers 1000 ml BAG 1,000 ML IV SCH ×2 (08:30→18:36)
[2019-11-27] MEDS ORDERED: Polyethylene Glycol 3350 17 GM PACKET PO SCH (09:00)
[2019-11-27] MEDS: Metoclopramide 5 MG/ML VIAL (10 mg) IV SCH ×2 (09:48→22:44)
[2019-11-27] MEDS: Pantoprazole VIAL 40 MG VIAL IV SCH ×2 (09:48→22:44)
[2019-11-28] MEDS: Lactated Ringers 1000 ml BAG 1,000 ML IV SCH ×3 (01:21→17:02)
[2019-11-28 05:56] LABS: ABS Lymphocytes 0.7 10^3/ul (1.0-4.8); ABS Monocytes 1.5 10^3/ul (0-0.8); Eosinophil % 0.1 %; Hematocrit 38 % (42-52); Lymphocyte % 4.8 %; Mean Corpuscular HGB Conc 34 g/dL (31-36); Mean Corpuscular Hemoglobin 32 pg (27-31); Mean Corpuscular Volume 94 fL (80-94); Platelet Count 122 10^3/uL (150-450); Red Blood Count 4.07 10^6 /uL (4.18-5.48); Red Cell Distribution Width 14 % (10-15); White Blood Count 14.3 10^3/uL (3.5-10.8)
[2019-11-28 07:00] LABS: Potassium 3.6 mmol/L (3.5-5.0)
[2019-11-28 07:05] LABS: BUN/Creatinine Ratio 28.6 (8-20); EGFR African American 36.5 (>60); EGFR Non-African American 30.2 (>60)
[2019-11-28] MEDS: Metoclopramide 5 MG/ML VIAL (10 mg) IV SCH ×2 (09:38→20:11)
[2019-11-28] MEDS: Pantoprazole VIAL 40 MG VIAL IV SCH ×2 (09:41→20:11)
[2019-11-28] MEDS ORDERED: Mineral Oil ENEMA 118 ML/BOTTLE BOTTLE PR ONE (13:27)
[2019-11-29 05:57] LABS: BUN/Creatinine Ratio 30.1 (8-20); Calcium 9.4 mg/dL (8.6-10.3); EGFR African American 52.6 (>60); EGFR Non-African American 43.5 (>60); Potassium 3.8 mmol/L (3.5-5.0)
[2019-11-29] MEDS ORDERED: D5W 1/2 NS 1000 ml BAG 1,000 ML IV SCH ×2 (10:00→11:21)
[2019-11-29] MEDS: Pantoprazole VIAL 40 MG VIAL IV SCH ×2 (10:38→20:47)
[2019-11-29] MEDS: Metoclopramide 5 MG/ML VIAL (10 mg) IV SCH ×2 (10:38→20:47)
[2019-11-29] MEDS ORDERED: hydrALAZINE 20 mg/ml 1 ML Vial IV IV SLOW PU PRN (11:52)
[2019-11-29 15:23] LABS: Calcium 9.5 mg/dL (8.6-10.3); EGFR African American 49.6 (>60); Potassium 3.4 mmol/L (3.5-5.0)
[2019-11-29] MEDS: D5W 1/2 NS 1000 ml BAG 1,000 ML IV SCH (16:51)
[2019-11-29] MEDS: TPN 24 HR with D10W 1000 ml BAG 1,000 ML, Amino Acid Infusion 10% 850 ML, Sterile Water... IV SCH ×2 (17:28→20:46)
[2019-11-30] MEDS: D5W 1/2 NS 1000 ml BAG 1,000 ML IV SCH (04:51)
[2019-11-30 06:55] LABS: ABS Eosinophils 0.3 10^3/ul (0-0.6); ABS Lymphocytes 0.9 10^3/ul (1.0-4.8); ABS Monocytes 1.4 10^3/ul (0-0.8); Hematocrit 40 % (42-52); Hemoglobin 13.5 g/dL (14.0-18.0); Lymphocyte % 5.6 %; Mean Corpuscular HGB Conc 34 g/dL (31-36); Mean Corpuscular Hemoglobin 32 pg (27-31); Mean Corpuscular Volume 95 fL (80-94); Mean Platelet Volume 8.1 fL (7.4-10.4); Platelet Count 141 10^3/uL (150-450); Red Blood Count 4.21 10^6 /uL (4.18-5.48); Red Cell Distribution Width 14 % (10-15); White Blood Count 15.6 10^3/uL (3.5-10.8)
[2019-11-30 07:04] LABS: BUN/Creatinine Ratio 28.9 (8-20); Blood Urea Nitrogen 39 mg/dL (6-24); CO2 Carbon Dioxide 25 mmol/L (22-32); Calcium 9.2 mg/dL (8.6-10.3); EGFR African American 60.8 (>60); EGFR Non-African American 50.2 (>60); Glucose 128 mg/dL (70-100)
[2019-11-30 07:50] LABS: Anion Gap 7 mmol/L (2-11); Chloride 117 mmol/L (101-111); Sodium 149 mmol/L (135-145)
[2019-11-30] MEDS: Pantoprazole VIAL 40 MG VIAL IV SCH ×2 (09:01→20:46)
[2019-11-30] MEDS: Metoclopramide 5 MG/ML VIAL (10 mg) IV SCH ×2 (09:02→20:47)
[2019-11-30] MEDS ORDERED: KCL 20 MEQ/100 ML IVPREMIX 20 MEQ/100 ML BAG IV ONE (10:27)
[2019-11-30] MEDS ORDERED: TPN 24 HR with D10W 1000 ml BAG 1,000 ML, Amino Acid Infusion 10% 850 ML, Sterile Water... IV SCH ×2 (10:44→11:04)
[2019-11-30] MEDS ORDERED: fentaNYL 100 mcg/2 ml 50 MCG/ML VIAL ONE (13:19)
[2019-11-30] MEDS ORDERED: Midazolam 10 mg/10 ml VIAL 1 mg/ml 10 ml VIAL (10 mg) ONE (13:19)
[2019-11-30] MEDS: TPN 24 HR with D10W 1000 ml BAG 1,000 ML, Amino Acid Infusion 10% 850 ML, Sterile Water... IV SCH (17:34)
[2019-11-30] MEDS: D5W 1000 ml BAG 1,000 ML IV SCH (17:34)
[2019-12-01 06:37] LABS: ABS Eosinophils 0.7 10^3/ul (0-0.6); ABS Monocytes 1.4 10^3/ul (0-0.8); ABS Neutrophils 11.7 10^3/ul (1.5-7.7); Hematocrit 39 % (42-52); Hemoglobin 13.2 g/dL (14.0-18.0); Lymphocyte % 6.5 %; Mean Corpuscular HGB Conc 34 g/dL (31-36); Mean Corpuscular Hemoglobin 32 pg (27-31); Mean Corpuscular Volume 95 fL (80-94); Mean Platelet Volume 8.4 fL (7.4-10.4); Nucleated Red Blood Cells % 0.1; Platelet Count 150 10^3/uL (150-450); Red Blood Count 4.13 10^6 /uL (4.18-5.48); Red Cell Distribution Width 14 % (10-15); White Blood Count 14.8 10^3/uL (3.5-10.8)
[2019-12-01 06:49] LABS: BUN/Creatinine Ratio 29.5 (8-20); Calcium 9.2 mg/dL (8.6-10.3); EGFR African American 68.3 (>60); EGFR Non-African American 56.5 (>60); Phosphorus 3.1 mg/dL (2.5-5.0); Potassium 3.5 mmol/L (3.5-5.0)
[2019-12-01] MEDS: Heparin 5000 UNITS/ML 1 mL VIAL SUBCUT SCH ×3 (07:55→21:58)
[2019-12-01] MEDS: Pantoprazole VIAL 40 MG VIAL IV SCH ×2 (07:55→21:58)
[2019-12-01] MEDS: Metoclopramide 5 MG/ML VIAL (10 mg) IV SCH ×3 (07:55→21:58)
[2019-12-01 11:20] LABS: Albumin 2.9 g/dL (3.2-5.2); Globulin 2.9 g/dL (2-4); Magnesium 2.1 mg/dL (1.9-2.7); Total Bilirubin 1.2 mg/dL (0.2-1.0); Total Protein 5.8 g/dL (6.4-8.9)
[2019-12-01] MEDS: D5W 1000 ml BAG 1,000 ML IV SCH (15:39)
[2019-12-01] MEDS ORDERED: fentaNYL 100 mcg/2 ml 50 MCG/ML VIAL ONE (17:11)
[2019-12-01] MEDS ORDERED: Midazolam 10 mg/10 ml VIAL 1 mg/ml 10 ml VIAL (10 mg) ONE (17:11)
[2019-12-01] MEDS ORDERED: NS 0.9% 1000 ml BAG 1,000 ML IV ONE (20:45)
[2019-12-01] MEDS: TPN 24 HR with D10W 1000 ml BAG 1,000 ML, Amino Acid Infusion 10% 850 ML, Sterile Water... IV SCH (20:48)
[2019-12-02] MEDS: Heparin 5000 UNITS/ML 1 mL VIAL SUBCUT SCH ×3 (06:26→21:11)
[2019-12-02] MEDS: Metoclopramide 5 MG/ML VIAL (10 mg) IV SCH ×3 (07:29→21:11)
[2019-12-02] MEDS: Pantoprazole VIAL 40 MG VIAL IV SCH ×2 (07:30→21:11)
[2019-12-02 08:08] LABS: ABS Eosinophils 0.3 10^3/ul (0-0.6); ABS Monocytes 1.2 10^3/ul (0-0.8); ABS Neutrophils 11.9 10^3/ul (1.5-7.7); Eosinophil % 2.2 %; Hematocrit 30 % (42-52); Hemoglobin 10.2 g/dL (14.0-18.0); Lymphocyte % 6.9 %; Mean Corpuscular HGB Conc 34 g/dL (31-36); Mean Corpuscular Hemoglobin 32 pg (27-31); Mean Corpuscular Volume 94 fL (80-94); Mean Platelet Volume 8.8 fL (7.4-10.4); Platelet Count 168 10^3/uL (150-450); Red Cell Distribution Width 14 % (10-15); White Blood Count 14.5 10^3/uL (3.5-10.8)
[2019-12-02 08:26] LABS: Albumin 2.4 g/dL (3.2-5.2); BUN/Creatinine Ratio 28.6 (8-20); Calcium 8.4 mg/dL (8.6-10.3); EGFR African American 47.2 (>60); Globulin 2.5 g/dL (2-4); Potassium 3.7 mmol/L (3.5-5.0); Total Bilirubin 2.1 mg/dL (0.2-1.0); Total Protein 4.9 g/dL (6.4-8.9)
[2019-12-02] MEDS: D5W 1000 ml BAG 1,000 ML IV SCH (12:21)
[2019-12-02] MEDS: TPN 24 HR with D10W 1000 ml BAG 1,000 ML, Amino Acid Infusion 10% 850 ML, Sterile Water... IV SCH (16:43)
[2019-12-03] MEDS: D5W 1000 ml BAG 1,000 ML IV SCH ×2 (05:03→17:44)
[2019-12-03] MEDS: Heparin 5000 UNITS/ML 1 mL VIAL SUBCUT SCH (05:04)
[2019-12-03 06:21] LABS: Hematocrit 27 % (42-52); Hemoglobin 9.5 g/dL (14.0-18.0); Mean Corpuscular HGB Conc 35 g/dL (31-36); Mean Corpuscular Hemoglobin 32 pg (27-31); Mean Corpuscular Volume 93 fL (80-94); Mean Platelet Volume 8.4 fL (7.4-10.4); Platelet Count 186 10^3/uL (150-450); Red Blood Count 2.93 10^6 /uL (4.18-5.48); Red Cell Distribution Width 13 % (10-15); White Blood Count 17.6 10^3/uL (3.5-10.8)
[2019-12-03 06:42] LABS: Albumin 2.7 g/dL (3.2-5.2); BUN/Creatinine Ratio 34.8 (8-20); Calcium 8.6 mg/dL (8.6-10.3); EGFR African American 51.8 (>60); EGFR Non-African American 42.8 (>60); Globulin 2.7 g/dL (2-4); Magnesium 2.1 mg/dL (1.9-2.7); Phosphorus 3.3 mg/dL (2.5-5.0); Potassium 3.3 mmol/L (3.5-5.0); Total Bilirubin 2.7 mg/dL (0.2-1.0); Total Protein 5.4 g/dL (6.4-8.9)
[2019-12-03] MEDS: Pantoprazole VIAL 40 MG VIAL IV SCH ×2 (08:16→22:27)
[2019-12-03] MEDS: Metoclopramide 5 MG/ML VIAL (10 mg) IV SCH ×3 (08:16→22:26)
[2019-12-03] MEDS ORDERED: KCL 20 MEQ/100 ML IVPREMIX 20 MEQ/100 ML BAG IV ONE (08:29)
[2019-12-03] MEDS: Ondansetron 4 mg VIAL 2 MG/ML 2 ml VIAL IV PRN (09:08)
[2019-12-03] MEDS: Morphine 2 MG/ML SYRINGE IV PRN (09:08)
[2019-12-03 09:52] LABS: ABS Eosinophils 0.4 10^3/ul (0-0.6); ABS Monocytes 1.7 10^3/ul (0-0.8); ABS Neutrophils 14.4 10^3/ul (1.5-7.7); Eosinophil % 2.5 %; Lymphocyte % 5.8 %
[2019-12-03 13:31] LABS: Urine Appearance Clear; Urine Bilirubin Negative (Negative); Urine Blood 1+ (Negative); Urine Color Amber; Urine Glucose Negative (Negative); Urine Ketones Negative (Negative); Urine Nitrite Negative (Negative); Urine Protein Negative (Negative); Urine Specific Gravity 1.019 (1.010-1.030); Urine Urobilinogen Positive (Negative)
[2019-12-03 13:33] LABS: Urine Bacteria 1+ (Absent); Urine Red Blood Cell 2+(6-10/hpf) (Absent); Urine White Blood Cell Trace(0-5/hpf) (Absent)
[2019-12-03] MEDS: TPN 24 HR with Dextrose 50% Water 500 ML, Amino Acid Infusion 10% 850 ML, Sterile Water... CENTR SCH (17:43)
[2019-12-03 18:20] LABS: Hematocrit 26 % (42-52); Hemoglobin 8.9 g/dL (14.0-18.0)
[2019-12-03 18:42] LABS: Phosphorus 3.2 mg/dL (2.5-5.0)
[2019-12-04 07:47] LABS: Hematocrit 24 % (42-52); Hemoglobin 8.2 g/dL (14.0-18.0); Mean Corpuscular HGB Conc 35 g/dL (31-36); Mean Corpuscular Hemoglobin 32 pg (27-31); Mean Corpuscular Volume 93 fL (80-94); Mean Platelet Volume 9.2 fL (7.4-10.4); Platelet Count 186 10^3/uL (150-450); Red Blood Count 2.54 10^6 /uL (4.18-5.48); Red Cell Distribution Width 13 % (10-15)
[2019-12-04 08:01] LABS: Albumin 2.4 g/dL (3.2-5.2); Albumin/Globulin Ratio 0.9 (1-3); BUN/Creatinine Ratio 31.4 (8-20); Calcium 8.4 mg/dL (8.6-10.3); EGFR African American 59.8 (>60); EGFR Non-African American 49.4 (>60); Globulin 2.6 g/dL (2-4); Magnesium 1.9 mg/dL (1.9-2.7); Phosphorus 3.1 mg/dL (2.5-5.0); Potassium 3.9 mmol/L (3.5-5.0); Total Bilirubin 1.9 mg/dL (0.2-1.0)
[2019-12-04] MEDS: Pantoprazole VIAL 40 MG VIAL IV SCH ×2 (09:38→20:37)
[2019-12-04] MEDS: Metoclopramide 5 MG/ML VIAL (10 mg) IV SCH ×3 (09:38→20:37)
[2019-12-04] MEDS: Morphine 2 MG/ML SYRINGE IV PRN ×2 (09:39→20:37)
[2019-12-04] MEDS: D5W 1000 ml BAG 1,000 ML IV SCH (09:46)
[2019-12-04 11:01] LABS: ABS Eosinophils 0.5 10^3/ul (0-0.6); ABS Lymphocytes 0.8 10^3/ul (1.0-4.8); ABS Monocytes 1.7 10^3/ul (0-0.8); Eosinophil % 3.7 %; Lymphocyte % 5.4 %
[2019-12-04] MEDS: TPN 24 HR with Dextrose 50% Water 500 ML, Amino Acid Infusion 10% 850 ML, Sterile Water... CENTR SCH (17:44)
[2019-12-05 06:10] LABS: ABS Eosinophils 0.4 10^3/ul (0-0.6); ABS Lymphocytes 0.6 10^3/ul (1.0-4.8); ABS Monocytes 1.4 10^3/ul (0-0.8); ABS Neutrophils 9.9 10^3/ul (1.5-7.7); Eosinophil % 3.5 %; Hematocrit 24 % (42-52); Hemoglobin 8.2 g/dL (14.0-18.0); Lymphocyte % 4.9 %; Mean Corpuscular HGB Conc 34 g/dL (31-36); Mean Corpuscular Hemoglobin 32 pg (27-31); Mean Corpuscular Volume 94 fL (80-94); Mean Platelet Volume 8.4 fL (7.4-10.4); Platelet Count 215 10^3/uL (150-450); Red Blood Count 2.56 10^6 /uL (4.18-5.48); Red Cell Distribution Width 14 % (10-15); White Blood Count 12.4 10^3/uL (3.5-10.8)
[2019-12-05 06:41] LABS: Albumin 2.4 g/dL (3.2-5.2); Albumin/Globulin Ratio 0.9 (1-3); BUN/Creatinine Ratio 31.1 (8-20); Calcium 8.7 mg/dL (8.6-10.3); EGFR African American 68.3 (>60); EGFR Non-African American 56.5 (>60); Globulin 2.8 g/dL (2-4); Magnesium 1.9 mg/dL (1.9-2.7); Potassium 4.3 mmol/L (3.5-5.0); Total Bilirubin 1.7 mg/dL (0.2-1.0); Total Protein 5.2 g/dL (6.4-8.9)
[2019-12-05] MEDS: Metoclopramide 5 MG/ML VIAL (10 mg) IV SCH ×2 (08:32→14:26)
[2019-12-05] MEDS: Pantoprazole VIAL 40 MG VIAL IV SCH ×2 (08:32→19:58)
[2019-12-05] MEDS: TPN 24 HR with Dextrose 50% Water 500 ML, Amino Acid Infusion 10% 850 ML, Sterile Water... CENTR SCH (17:20)
[2019-12-06 06:03] LABS: Hematocrit 26 % (42-52); Hemoglobin 8.7 g/dL (14.0-18.0); Mean Corpuscular HGB Conc 33 g/dL (31-36); Mean Corpuscular Hemoglobin 31 pg (27-31); Mean Corpuscular Volume 95 fL (80-94); Mean Platelet Volume 8.3 fL (7.4-10.4); Platelet Count 259 10^3/uL (150-450); Red Blood Count 2.79 10^6 /uL (4.18-5.48); Red Cell Distribution Width 13 % (10-15); White Blood Count 12.2 10^3/uL (3.5-10.8)
[2019-12-06 06:22] LABS: BUN/Creatinine Ratio 28.5 (8-20); Calcium 9.2 mg/dL (8.6-10.3); EGFR African American 67.7 (>60); EGFR Non-African American 55.9 (>60); Potassium 4.3 mmol/L (3.5-5.0)
[2019-12-06 06:39] LABS: ABS Eosinophils 0.3 10^3/ul (0-0.6); ABS Lymphocytes 0.5 10^3/ul (1.0-4.8); ABS Monocytes 1.2 10^3/ul (0-0.8); ABS Neutrophils 10.2 10^3/ul (1.5-7.7); Eosinophil % 2.1 %; Lymphocyte % 4.4 %
[2019-12-06] MEDS ORDERED: hydrALAZINE 20 mg/ml 1 ML Vial IV IV SLOW PU PRN (09:40)
[2019-12-06] MEDS: Morphine 2 MG/ML SYRINGE IV PRN (09:47)
[2019-12-06] MEDS: Pantoprazole VIAL 40 MG VIAL IV SCH ×2 (09:47→20:33)
[2019-12-06] MEDS ORDERED: NS 0.9% 500 ml BAG 500 ML IV ONE (16:41)
[2019-12-06] MEDS: TPN 24 HR with Dextrose 50% Water 500 ML, Amino Acid Infusion 10% 850 ML, Sterile Water... CENTR SCH (17:14)
[2019-12-06] MEDS ORDERED: Piperacillin/Tazobac ADVAN 3.375 GM in NS 0.9% 100 ml BAG 100 ML IVPB ONE (18:10)
[2019-12-06] MEDS ORDERED: NS 0.9% IV SCH (18:15)
[2019-12-06] MEDS ORDERED: NS 0.9% 1000 ml BAG 1,500 ML IV ONE (18:27)
[2019-12-06 18:53] LABS: ABS Eosinophils 0.2 10^3/ul (0-0.6); ABS Lymphocytes 0.6 10^3/ul (1.0-4.8); ABS Monocytes 1.3 10^3/ul (0-0.8); ABS Neutrophils 9.8 10^3/ul (1.5-7.7); Eosinophil % 1.7 %; Hematocrit 25 % (42-52); Hemoglobin 8.7 g/dL (14.0-18.0); Lymphocyte % 4.8 %; Mean Corpuscular HGB Conc 35 g/dL (31-36); Mean Corpuscular Hemoglobin 33 pg (27-31); Mean Corpuscular Volume 94 fL (80-94); Nucleated Red Blood Cells % 0.1; Platelet Count 258 10^3/uL (150-450); Red Blood Count 2.65 10^6 /uL (4.18-5.48); Red Cell Distribution Width 14 % (10-15); White Blood Count 11.9 10^3/uL (3.5-10.8)
[2019-12-06] MEDS ORDERED: Zosyn per Pharmacy NOTE FOLLOW UP SCH (19:00)
[2019-12-06 19:10] LABS: Albumin 2.7 g/dL (3.2-5.2); Albumin/Globulin Ratio 0.9 (1-3); BUN/Creatinine Ratio 29.4 (8-20); Calcium 8.9 mg/dL (8.6-10.3); EGFR African American 70.3 (>60); EGFR Non-African American 58.1 (>60); Globulin 2.9 g/dL (2-4); Potassium 4.4 mmol/L (3.5-5.0); Total Bilirubin 2.4 mg/dL (0.2-1.0); Total Protein 5.6 g/dL (6.4-8.9)
[2019-12-06 19:41] LABS: Urine Appearance Clear; Urine Bilirubin Negative (Negative); Urine Blood 2+ (Negative); Urine Color Amber; Urine Glucose Negative (Negative); Urine Ketones Negative (Negative); Urine Nitrite Negative (Negative); Urine Protein 1+(30 mg/dL) (Negative); Urine Specific Gravity 1.018 (1.010-1.030); Urine Urobilinogen Negative (Negative)
[2019-12-06 19:42] LABS: Urine Bacteria Absent (Absent); Urine Red Blood Cell 3+(>10/hpf) (Absent); Urine White Blood Cell 1+(6-10/hpf) (Absent)
[2019-12-06] MEDS: NS 0.9% 1000 ml BAG 1,000 ML IV SCH (22:29)
[2019-12-06] MEDS: ZOSYN 3.375 GM Q8H per EXTENDED INFUSION IV SCH (22:29)
[2019-12-07] MEDS: ZOSYN 3.375 GM Q8H per EXTENDED INFUSION IV SCH ×3 (05:38→22:34)
[2019-12-07 06:22] LABS: ABS Basophils 0.1 10^3/ul (0-0.2); ABS Eosinophils 0.2 10^3/ul (0-0.6); ABS Lymphocytes 0.6 10^3/ul (1.0-4.8); ABS Monocytes 1.3 10^3/ul (0-0.8); ABS Neutrophils 10.5 10^3/ul (1.5-7.7); Eosinophil % 1.6 %; Hematocrit 24 % (42-52); Hemoglobin 8.3 g/dL (14.0-18.0); Lymphocyte % 4.7 %; Mean Corpuscular HGB Conc 35 g/dL (31-36); Mean Corpuscular Hemoglobin 36 pg (27-31); Mean Corpuscular Volume 102 fL (80-94); Mean Platelet Volume 8.1 fL (7.4-10.4); Nucleated Red Blood Cells % 0.1; Platelet Count 228 10^3/uL (150-450); Red Blood Count 2.32 10^6 /uL (4.18-5.48); Red Cell Distribution Width 15 % (10-15); White Blood Count 12.7 10^3/uL (3.5-10.8)
[2019-12-07] MEDS: Pantoprazole VIAL 40 MG VIAL IV SCH ×2 (07:47→22:30)
[2019-12-07] MEDS: NS 0.9% 1000 ml BAG 1,000 ML IV SCH (14:37)
[2019-12-07] MEDS: TPN 24 HR with Dextrose 50% Water 500 ML, Amino Acid Infusion 10% 850 ML, Sterile Water... CENTR SCH (16:49)
[2019-12-08] MEDS: ZOSYN 3.375 GM Q8H per EXTENDED INFUSION IV SCH (06:33)
[2019-12-08 06:56] LABS: ABS Basophils 0.1 10^3/ul (0-0.2); ABS Eosinophils 0.2 10^3/ul (0-0.6); ABS Lymphocytes 0.6 10^3/ul (1.0-4.8); ABS Monocytes 0.9 10^3/ul (0-0.8); ABS Neutrophils 7.2 10^3/ul (1.5-7.7); Eosinophil % 2.5 %; Hematocrit 24 % (42-52); Hemoglobin 8.3 g/dL (14.0-18.0); Lymphocyte % 7.2 %; Mean Corpuscular HGB Conc 34 g/dL (31-36); Mean Corpuscular Hemoglobin 39 pg (27-31); Mean Platelet Volume 8.4 fL (7.4-10.4); Nucleated Red Blood Cells % 0.1; Platelet Count 224 10^3/uL (150-450); Red Blood Count 2.12 10^6 /uL (4.18-5.48); Red Cell Distribution Width 17 % (10-15); White Blood Count 9.1 10^3/uL (3.5-10.8)
[2019-12-08 07:29] LABS: Mean Corpuscular Volume 115 fL (80-94)
[2019-12-08 08:44] LABS: ALT 42 U/L (7-52); AST 26 U/L (13-39); Albumin 2.4 g/dL (3.2-5.2); Albumin/Globulin Ratio 0.8 (1-3); Alkaline Phosphatase 179 U/L (34-104); BUN/Creatinine Ratio 23.1 (8-20); Blood Urea Nitrogen 27 mg/dL (6-24); CO2 Carbon Dioxide 15 mmol/L (22-32); Calcium 8.9 mg/dL (8.6-10.3); EGFR African American 71.7 (>60); EGFR Non-African American 59.2 (>60); Globulin 3.1 g/dL (2-4); Glucose 103 mg/dL (70-100); Magnesium 1.8 mg/dL (1.9-2.7); Phosphorus 3.3 mg/dL (2.5-5.0); Potassium 4.5 mmol/L (3.5-5.0); Sodium 140 mmol/L (135-145); Total Protein 5.5 g/dL (6.4-8.9); Triglycerides 74 mg/dL
[2019-12-08 08:49] LABS: Anion Gap 4 mmol/L (2-11); Chloride 121 mmol/L (101-111)
[2019-12-08] MEDS: cefTRIAXone 1 gm/50 mL NS BAG 1 GM/50 ML BAG IVPB SCH (09:09)
[2019-12-08] MEDS: Pantoprazole VIAL 40 MG VIAL IV SCH ×2 (09:11→21:02)
[2019-12-08 09:35] LABS: Folate 16.15 ng/mL (>3.99)
[2019-12-08 09:36] LABS: Vitamin B12 > 1450 pg/mL (180-914)
[2019-12-08] MEDS ORDERED: Magnesium Sulfate 2 gm BAG 2 GM/50 ML BAG IVPB ONE (09:53)
[2019-12-08] MEDS: TPN 24 HR with Dextrose 50% Water 500 ML, Amino Acid Infusion 10% 850 ML, Sterile Water... CENTR SCH (17:10)
[2019-12-09] MEDS: Ondansetron 4 mg VIAL 2 MG/ML 2 ml VIAL IV PRN (01:27)
[2019-12-09] MEDS ORDERED: Dextrose 50% Syringe 50 ml 25 GM/50 ML SYRINGE IV PUSH PRN (05:54)
[2019-12-09 06:03] LABS: ABS Basophils 0.1 10^3/ul (0-0.2); ABS Eosinophils 0.4 10^3/ul (0-0.6); ABS Monocytes 1.1 10^3/ul (0-0.8); ABS Neutrophils 9.9 10^3/ul (1.5-7.7); Eosinophil % 2.9 %; Hematocrit 25 % (42-52); Hemoglobin 8.5 g/dL (14.0-18.0); Lymphocyte % 7.9 %; Mean Corpuscular HGB Conc 34 g/dL (31-36); Mean Corpuscular Hemoglobin 32 pg (27-31); Mean Corpuscular Volume 95 fL (80-94); Mean Platelet Volume 8.4 fL (7.4-10.4); Nucleated Red Blood Cells % 0.1; Platelet Count 281 10^3/uL (150-450); Red Blood Count 2.64 10^6 /uL (4.18-5.48); Red Cell Distribution Width 15 % (10-15); White Blood Count 12.3 10^3/uL (3.5-10.8)
[2019-12-09 06:28] LABS: BUN/Creatinine Ratio 24.6 (8-20); Calcium 9.2 mg/dL (8.6-10.3); EGFR Non-African American 58.7 (>60); Magnesium 2.1 mg/dL (1.9-2.7); Potassium 4.5 mmol/L (3.5-5.0)
[2019-12-09] MEDS: Pantoprazole VIAL 40 MG VIAL IV SCH ×2 (07:55→21:08)
[2019-12-09] MEDS: cefTRIAXone 1 gm/50 mL NS BAG 1 GM/50 ML BAG IVPB SCH (08:13)
[2019-12-09] MEDS: TPN 24 HR with Dextrose 50% Water 500 ML, Amino Acid Infusion 10% 850 ML, Sterile Water... CENTR SCH (17:14)
[2019-12-09 19:17] LABS: Hematocrit 30 % (42-52); Hemoglobin 9.9 g/dL (14.0-18.0); Mean Corpuscular HGB Conc 33 g/dL (31-36); Mean Corpuscular Hemoglobin 31 pg (27-31); Mean Corpuscular Volume 95 fL (80-94); Mean Platelet Volume 7.8 fL (7.4-10.4); Platelet Count 276 10^3/uL (150-450); Red Blood Count 3.19 10^6 /uL (4.18-5.48); Red Cell Distribution Width 15 % (10-15); White Blood Count 13.6 10^3/uL (3.5-10.8)
[2019-12-10 06:11] LABS: Urine Appearance Clear; Urine Bilirubin Negative (Negative); Urine Blood 2+ (Negative); Urine Color Amber; Urine Glucose Negative (Negative); Urine Ketones Negative (Negative); Urine Nitrite Negative (Negative); Urine Protein 2+(100 mg/dL) (Negative); Urine Specific Gravity 1.017 (1.010-1.030); Urine Urobilinogen Negative (Negative)
[2019-12-10 06:14] LABS: Urine Bacteria 1+ (Absent); Urine Red Blood Cell 3+(>10/hpf) (Absent); Urine White Blood Cell 1+(6-10/hpf) (Absent)
[2019-12-10 06:40] LABS: Albumin 2.8 g/dL (3.2-5.2); Albumin/Globulin Ratio 0.8 (1-3); BUN/Creatinine Ratio 27.9 (8-20); Calcium 9.2 mg/dL (8.6-10.3); EGFR African American 68.3 (>60); EGFR Non-African American 56.5 (>60); Globulin 3.3 g/dL (2-4); Magnesium 2.1 mg/dL (1.9-2.7); Phosphorus 3.2 mg/dL (2.5-5.0); Potassium 4.7 mmol/L (3.5-5.0); Total Protein 6.1 g/dL (6.4-8.9)
[2019-12-10] MEDS: cefTRIAXone 1 gm/50 mL NS BAG 1 GM/50 ML BAG IVPB SCH (09:06)
[2019-12-10] MEDS: Pantoprazole VIAL 40 MG VIAL IV SCH ×2 (09:07→22:07)
[2019-12-10] MEDS: TPN 24 HR with Dextrose 50% Water 500 ML, Amino Acid Infusion 10% 850 ML, Sterile Water... CENTR SCH (17:20)
[2019-12-10] MEDS: CMCS:Oral Rinse (Biotene)(NF) 237 ML or 473 ML ORAL RINSE BTL MT SCH ×3 (17:29→22:07)
[2019-12-11] MEDS: Dextrose 50% Syringe 50 ml 25 GM/50 ML SYRINGE IV PUSH PRN ×2 (00:58→05:43)
[2019-12-11] MEDS: CMCS:Oral Rinse (Biotene)(NF) 237 ML or 473 ML ORAL RINSE BTL MT SCH ×5 (06:48→22:57)
[2019-12-11 06:49] LABS: Albumin 2.7 g/dL (3.2-5.2); Calcium 9.1 mg/dL (8.6-10.3); Potassium 4.8 mmol/L (3.5-5.0)
[2019-12-11 06:55] LABS: Albumin/Globulin Ratio 0.9 (1-3); BUN/Creatinine Ratio 27.6 (8-20); EGFR African American 65.2 (>60); EGFR Non-African American 53.9 (>60); Globulin 3.1 g/dL (2-4); Phosphorus 3.4 mg/dL (2.5-5.0); Total Protein 5.8 g/dL (6.4-8.9)
[2019-12-11] MEDS ORDERED: Lorazepam PYXIS KEY ONE (08:12)
[2019-12-11] MEDS: Pantoprazole VIAL 40 MG VIAL IV SCH ×2 (09:28→20:36)
[2019-12-11] MEDS: cefTRIAXone 1 gm/50 mL NS BAG 1 GM/50 ML BAG IVPB SCH (09:28)
[2019-12-11] MEDS: TPN CENTRAL STANDARD BASE B CENTR SCH (18:24)
[2019-12-12] MEDS: CMCS:Oral Rinse (Biotene)(NF) 237 ML or 473 ML ORAL RINSE BTL MT SCH ×5 (05:37→20:18)
[2019-12-12 06:10] LABS: BUN/Creatinine Ratio 30.1 (8-20); Calcium 9.3 mg/dL (8.6-10.3); EGFR African American 61.8 (>60); EGFR Non-African American 51.1 (>60); Phosphorus 3.3 mg/dL (2.5-5.0); Potassium 4.3 mmol/L (3.5-5.0)
[2019-12-12] MEDS: Pantoprazole VIAL 40 MG VIAL IV SCH ×2 (08:28→20:18)
[2019-12-12] MEDS: cefTRIAXone 1 gm/50 mL NS BAG 1 GM/50 ML BAG IVPB SCH (08:28)
[2019-12-12] MEDS: TPN CENTRAL STANDARD BASE B CENTR SCH (17:05)
[2019-12-12] MEDS: Ondansetron 4 mg VIAL 2 MG/ML 2 ml VIAL IV PRN (23:12)
[2019-12-13] MEDS: CMCS:Oral Rinse (Biotene)(NF) 237 ML or 473 ML ORAL RINSE BTL MT SCH ×5 (05:49→20:22)
[2019-12-13 06:34] LABS: ABS Basophils 0.1 10^3/ul (0-0.2); ABS Eosinophils 0.5 10^3/ul (0-0.6); ABS Monocytes 1.2 10^3/ul (0-0.8); ABS Neutrophils 13.5 10^3/ul (1.5-7.7); Eosinophil % 3.1 %; Hematocrit 34 % (42-52); Hemoglobin 11.3 g/dL (14.0-18.0); Lymphocyte % 6.3 %; Mean Corpuscular HGB Conc 34 g/dL (31-36); Mean Corpuscular Hemoglobin 32 pg (27-31); Mean Corpuscular Volume 95 fL (80-94); Mean Platelet Volume 9.2 fL (7.4-10.4); Platelet Count 323 10^3/uL (150-450); Red Blood Count 3.53 10^6 /uL (4.18-5.48); Red Cell Distribution Width 15 % (10-15); White Blood Count 16.4 10^3/uL (3.5-10.8)
[2019-12-13 06:54] LABS: BUN/Creatinine Ratio 30.5 (8-20); Calcium 9.8 mg/dL (8.6-10.3); EGFR African American 53.4 (>60); EGFR Non-African American 44.1 (>60); Magnesium 2.2 mg/dL (1.9-2.7); Potassium 4.5 mmol/L (3.5-5.0)
[2019-12-13] MEDS: cefTRIAXone 1 gm/50 mL NS BAG 1 GM/50 ML BAG IVPB SCH (07:59)
[2019-12-13] MEDS: Pantoprazole VIAL 40 MG VIAL IV SCH ×2 (08:00→20:22)
[2019-12-13] MEDS: TPN CENTRAL STANDARD BASE B CENTR SCH (16:57)
[2019-12-14] MEDS: CMCS:Oral Rinse (Biotene)(NF) 237 ML or 473 ML ORAL RINSE BTL MT SCH ×5 (05:31→22:03)
[2019-12-14 07:12] LABS: ABS Basophils 0.1 10^3/ul (0-0.2); ABS Eosinophils 0.5 10^3/ul (0-0.6); ABS Lymphocytes 0.9 10^3/ul (1.0-4.8); ABS Neutrophils 12.3 10^3/ul (1.5-7.7); Eosinophil % 3.7 %; Hematocrit 35 % (42-52); Hemoglobin 11.6 g/dL (14.0-18.0); Lymphocyte % 5.9 %; Mean Corpuscular HGB Conc 34 g/dL (31-36); Mean Corpuscular Hemoglobin 32 pg (27-31); Mean Corpuscular Volume 96 fL (80-94); Mean Platelet Volume 9.5 fL (7.4-10.4); Platelet Count 300 10^3/uL (150-450); Red Blood Count 3.61 10^6 /uL (4.18-5.48); Red Cell Distribution Width 15 % (10-15); White Blood Count 14.8 10^3/uL (3.5-10.8)
[2019-12-14 07:23] LABS: Albumin 2.9 g/dL (3.2-5.2); Albumin/Globulin Ratio 0.7 (1-3); BUN/Creatinine Ratio 30.8 (8-20); Calcium 9.6 mg/dL (8.6-10.3); EGFR African American 46.9 (>60); EGFR Non-African American 38.8 (>60); Globulin 3.9 g/dL (2-4); Magnesium 2.2 mg/dL (1.9-2.7); Potassium 4.1 mmol/L (3.5-5.0); Total Bilirubin 3.1 mg/dL (0.2-1.0); Total Protein 6.8 g/dL (6.4-8.9)
[2019-12-14 08:26] LABS: Indirect Bilirubin 0.9 mg/dL (0.3-1.0)
[2019-12-14] MEDS: cefTRIAXone 1 gm/50 mL NS BAG 1 GM/50 ML BAG IVPB SCH (08:33)
[2019-12-14] MEDS: Ondansetron 4 mg VIAL 2 MG/ML 2 ml VIAL IV PRN (08:33)
[2019-12-14] MEDS: Pantoprazole VIAL 40 MG VIAL IV SCH ×2 (08:33→20:01)
[2019-12-14] MEDS ORDERED: fentaNYL 250 mcg/5 ml 50 MCG/ML 5 ml VIAL (250 MCG) ONE (11:12)
[2019-12-14] MEDS ORDERED: Rocuronium 50 mg VIAL 10 mg/ml 5 ml VIAL (50 mg) ONE ×2 (11:13→15:07)
[2019-12-14] MEDS ORDERED: Propofol 10 MG/ML 20 ML BTL ONE (11:13)
[2019-12-14] MEDS ORDERED: Lidocaine 2% PF 5 ML VIAL ONE (11:13)
[2019-12-14] MEDS ORDERED: Succinylcholine 200 mg VIAL 20 mg/ml 10 ml VIAL (200 mg) ONE (11:13)
[2019-12-14] MEDS ORDERED: Bupivacaine 0.25% SDV 30 ML ONE (12:31)
[2019-12-14] MEDS ORDERED: ceFAZolin 2 GM PREMIX 2 GM/50 ML BAG ONE (12:46)
[2019-12-14] MEDS ORDERED: Phenylephrine 40 mcg/mL 10mL (400mcg) SYRINGE ONE (14:46)
[2019-12-14] MEDS ORDERED: EPHEDrine (Pressors) 50 MG/ML VIAL ONE (14:46)
[2019-12-14] MEDS ORDERED: HYDROmorphone 1 MG/1 ML SYRINGE ONE ×2 (14:47→16:45)
[2019-12-14] MEDS ORDERED: Prochlorperazine 5 mg/ml 2 ml VIAL (10 mg) IV PRN (14:50)
[2019-12-14] MEDS ORDERED: Naloxone 0.4 mg VIAL 0.4 mg/ml 1 ml VIAL IV PRN (14:50)
[2019-12-14] MEDS ORDERED: Acetaminophen IV 1 GM/100ML 100 ML ONE (14:50)
[2019-12-14] MEDS ORDERED: diPHENhydraMINE IV 50 MG/ML 1 ml VIAL (BENADRYL) IV PRN (14:50)
[2019-12-14] MEDS ORDERED: Ondansetron 4 mg VIAL 2 MG/ML 2 ml VIAL ONE (15:23)
[2019-12-14] MEDS ORDERED: Lactated Ringers 1000 ml BAG 1,000 ML IV SCH (16:00)
[2019-12-14] MEDS ORDERED: fentaNYL 100 mcg/2 ml 50 MCG/ML VIAL ONE (16:04)
[2019-12-14] MEDS: fentaNYL 100 mcg/2 ml 50 MCG/ML VIAL IV PRN ×5 (16:05→16:25)
[2019-12-14] MEDS: HYDROmorphone 1 MG/1 ML SYRINGE IV PRN ×4 (16:46→17:15)
[2019-12-14] MEDS: TPN CENTRAL STANDARD BASE B CENTR SCH (18:27)
[2019-12-14] MEDS: Morphine 2 MG/ML SYRINGE IV PRN (20:05)
[2019-12-15] MEDS: Acetaminophen IV 1 GM/100ML 100 ML IVPB SCH ×3 (00:19→16:11)
[2019-12-15] MEDS: CMCS:Oral Rinse (Biotene)(NF) 237 ML or 473 ML ORAL RINSE BTL MT SCH ×5 (05:28→21:55)
[2019-12-15 05:39] LABS: Hematocrit 31 % (42-52); Hemoglobin 10.6 g/dL (14.0-18.0); Mean Corpuscular HGB Conc 34 g/dL (31-36); Mean Corpuscular Hemoglobin 32 pg (27-31); Mean Corpuscular Volume 96 fL (80-94); Mean Platelet Volume 9.5 fL (7.4-10.4); Platelet Count 242 10^3/uL (150-450); Red Blood Count 3.28 10^6 /uL (4.18-5.48); Red Cell Distribution Width 16 % (10-15); White Blood Count 24.8 10^3/uL (3.5-10.8)
[2019-12-15 05:55] LABS: Albumin 2.6 g/dL (3.2-5.2); Albumin/Globulin Ratio 0.8 (1-3); BUN/Creatinine Ratio 28.9 (8-20); Calcium 9.2 mg/dL (8.6-10.3); EGFR African American 33.7 (>60); EGFR Non-African American 27.9 (>60); Globulin 3.3 g/dL (2-4); Potassium 4.6 mmol/L (3.5-5.0); Total Bilirubin 4.6 mg/dL (0.2-1.0); Total Protein 5.9 g/dL (6.4-8.9)
[2019-12-15 06:05] LABS: ABS Basophils 0.2 10^3/ul (0-0.2); ABS Eosinophils 0.2 10^3/ul (0-0.6); ABS Lymphocytes 0.5 10^3/ul (1.0-4.8); ABS Monocytes 1.3 10^3/ul (0-0.8); ABS Neutrophils 22.6 10^3/ul (1.5-7.7); Eosinophil % 0.8 %; Lymphocyte % 2.2 %
[2019-12-15] MEDS ORDERED: NS 0.9% 1000 ml BAG 1,000 ML IV SCH (07:15)
[2019-12-15 07:54] LABS: Indirect Bilirubin 1.1 mg/dL (0.3-1.0); Magnesium 2.1 mg/dL (1.9-2.7)
[2019-12-15] MEDS: Pantoprazole VIAL 40 MG VIAL IV SCH ×2 (09:49→21:55)
[2019-12-15] MEDS: cefTRIAXone 1 gm/50 mL NS BAG 1 GM/50 ML BAG IVPB SCH (09:51)
[2019-12-15] MEDS: NS 0.9% 1000 ml BAG 1,000 ML IV SCH (12:36)
[2019-12-15] MEDS: Morphine 2 MG/ML SYRINGE IV PRN (12:52)
[2019-12-15] MEDS: TPN CENTRAL STANDARD BASE B CENTR SCH (16:12)
[2019-12-15] MEDS ORDERED: NS 0.9% 1000 ml BAG 1,000 ML IV ONE (17:34)
[2019-12-16] MEDS: NS 0.9% 1000 ml BAG 1,000 ML IV SCH ×2 (00:37→09:03)
[2019-12-16] MEDS: CMCS:Oral Rinse (Biotene)(NF) 237 ML or 473 ML ORAL RINSE BTL MT SCH ×5 (06:01→21:38)
[2019-12-16 06:52] LABS: ALT 39 U/L (7-52); AST 41 U/L (13-39); Albumin 2.3 g/dL (3.2-5.2); Albumin/Globulin Ratio 0.8 (1-3); Alkaline Phosphatase 187 U/L (34-104); BUN/Creatinine Ratio 30.8 (8-20); Blood Urea Nitrogen 66 mg/dL (6-24); CO2 Carbon Dioxide 21 mmol/L (22-32); Calcium 8.5 mg/dL (8.6-10.3); Cholesterol 60 mg/dL; EGFR African American 35.7 (>60); EGFR Non-African American 29.5 (>60); Globulin 2.9 g/dL (2-4); Glucose 77 mg/dL (70-100); Indirect Bilirubin 1.1 mg/dL (0.3-1.0); Magnesium 2.1 mg/dL (1.9-2.7); Potassium 4.5 mmol/L (3.5-5.0); Sodium 139 mmol/L (135-145); Total Protein 5.2 g/dL (6.4-8.9); Triglycerides 87 mg/dL
[2019-12-16 07:17] LABS: Anion Gap 4 mmol/L (2-11); Chloride 114 mmol/L (101-111); HDL Cholesterol < 2.5 mg/dL; LDL Cholesterol 40 mg/dL
[2019-12-16] MEDS: Morphine 2 MG/ML SYRINGE IV PRN ×2 (08:02→12:24)
[2019-12-16 08:19] LABS: ABS Eosinophils 0.6 10^3/ul (0-0.6); ABS Lymphocytes 0.6 10^3/ul (1.0-4.8); ABS Monocytes 0.9 10^3/ul (0-0.8); ABS Neutrophils 11.8 10^3/ul (1.5-7.7); Eosinophil % 4.3 %; Hematocrit 28 % (42-52); Lymphocyte % 4.4 %; Mean Corpuscular HGB Conc 33 g/dL (31-36); Mean Corpuscular Hemoglobin 31 pg (27-31); Mean Corpuscular Volume 96 fL (80-94); Mean Platelet Volume 9.6 fL (7.4-10.4); Platelet Count 179 10^3/uL (150-450); Red Blood Count 2.88 10^6 /uL (4.18-5.48); Red Cell Distribution Width 17 % (10-15); White Blood Count 13.9 10^3/uL (3.5-10.8)
[2019-12-16] MEDS: Pantoprazole VIAL 40 MG VIAL IV SCH ×2 (09:04→21:38)
[2019-12-16] MEDS: cefTRIAXone 1 gm/50 mL NS BAG 1 GM/50 ML BAG IVPB SCH (09:05)
[2019-12-16] MEDS: TPN CENTRAL STANDARD BASE B CENTR SCH (16:49)
[2019-12-16] MEDS: Analgesic BALM 114 GM TOPICAL PRN (17:26)
[2019-12-16 17:40] LABS: Hematocrit 29 % (42-52); Hemoglobin 9.2 g/dL (14.0-18.0)
[2019-12-17] MEDS: CMCS:Oral Rinse (Biotene)(NF) 237 ML or 473 ML ORAL RINSE BTL MT SCH ×5 (06:09→22:27)
[2019-12-17] MEDS: Morphine 2 MG/ML SYRINGE IV PRN (06:15)
[2019-12-17 06:36] LABS: ABS Basophils 0.1 10^3/ul (0-0.2); ABS Eosinophils 0.4 10^3/ul (0-0.6); ABS Lymphocytes 0.6 10^3/ul (1.0-4.8); ABS Neutrophils 11.9 10^3/ul (1.5-7.7); Eosinophil % 2.8 %; Hematocrit 27 % (42-52); Mean Corpuscular HGB Conc 34 g/dL (31-36); Mean Corpuscular Hemoglobin 33 pg (27-31); Mean Corpuscular Volume 96 fL (80-94); Mean Platelet Volume 9.6 fL (7.4-10.4); Platelet Count 162 10^3/uL (150-450); Red Blood Count 2.76 10^6 /uL (4.18-5.48); Red Cell Distribution Width 17 % (10-15)
[2019-12-17 06:53] LABS: Albumin 2.3 g/dL (3.2-5.2); Albumin/Globulin Ratio 0.8 (1-3); BUN/Creatinine Ratio 31.6 (8-20); Calcium 8.8 mg/dL (8.6-10.3); EGFR African American 50.7 (>60); EGFR Non-African American 41.9 (>60); Globulin 2.9 g/dL (2-4); Phosphorus 2.7 mg/dL (2.5-5.0); Potassium 3.9 mmol/L (3.5-5.0); Total Bilirubin 5.9 mg/dL (0.2-1.0); Total Protein 5.2 g/dL (6.4-8.9)
[2019-12-17 06:54] LABS: INR 1.33 (0.82-1.09)
[2019-12-17] MEDS: cefTRIAXone 1 gm/50 mL NS BAG 1 GM/50 ML BAG IVPB SCH (08:48)
[2019-12-17] MEDS: Pantoprazole VIAL 40 MG VIAL IV SCH ×2 (08:52→22:27)
[2019-12-17] MEDS ORDERED: Polyethylene Glycol 3350 17 GM PACKET PO PRN (08:59)
[2019-12-17] MEDS: Analgesic BALM 114 GM TOPICAL PRN (09:27)
[2019-12-17] MEDS: HYDROcodone/ACETAMIN 5/325 mg TAB PO PRN ×2 (09:29→22:26)
[2019-12-17] MEDS ORDERED: Lidocaine PATCH 5% PATCH TRANSDERM PRN (10:22)
[2019-12-17 10:42] LABS: Immunoglobulin Subclass IgG4 54.8 mg/dL
[2019-12-17] MEDS: NS 0.9% 1000 ml BAG 1,000 ML IV SCH (16:41)
[2019-12-17] MEDS: TPN CENTRAL STANDARD BASE B CENTR SCH (16:47)
[2019-12-17] MEDS: Lidocaine Patch REMOVE PATCH PATCH OFF SCH (22:37)
[2019-12-18] MEDS: NS 0.9% 1000 ml BAG 1,000 ML IV SCH ×2 (04:45→17:51)
[2019-12-18] MEDS: CMCS:Oral Rinse (Biotene)(NF) 237 ML or 473 ML ORAL RINSE BTL MT SCH ×5 (05:37→22:01)
[2019-12-18 06:23] LABS: Albumin 2.1 g/dL (3.2-5.2); Albumin/Globulin Ratio 0.8 (1-3); BUN/Creatinine Ratio 30.5 (8-20); Calcium 8.4 mg/dL (8.6-10.3); EGFR African American 53.4 (>60); EGFR Non-African American 44.1 (>60); Globulin 2.7 g/dL (2-4); Potassium 3.5 mmol/L (3.5-5.0); Total Bilirubin 6.8 mg/dL (0.2-1.0); Total Protein 4.8 g/dL (6.4-8.9)
[2019-12-18 06:43] LABS: ABS Eosinophils 0.4 10^3/ul (0-0.6); ABS Lymphocytes 0.5 10^3/ul (1.0-4.8); ABS Monocytes 0.9 10^3/ul (0-0.8); ABS Neutrophils 7.7 10^3/ul (1.5-7.7); Hematocrit 24 % (42-52); Hemoglobin 8.3 g/dL (14.0-18.0); Lymphocyte % 5.4 %; Mean Corpuscular HGB Conc 35 g/dL (31-36); Mean Corpuscular Hemoglobin 34 pg (27-31); Mean Corpuscular Volume 97 fL (80-94); Mean Platelet Volume 10.1 fL (7.4-10.4); Nucleated Red Blood Cells % 0.1; Platelet Count 126 10^3/uL (150-450); Red Blood Count 2.48 10^6 /uL (4.18-5.48); Red Cell Distribution Width 18 % (10-15); White Blood Count 9.5 10^3/uL (3.5-10.8)
[2019-12-18] MEDS: Pantoprazole VIAL 40 MG VIAL IV SCH ×2 (09:50→22:03)
[2019-12-18] MEDS: cefTRIAXone 1 gm/50 mL NS BAG 1 GM/50 ML BAG IVPB SCH (09:50)
[2019-12-18] MEDS: HYDROcodone/ACETAMIN 5/325 mg TAB PO PRN (15:30)
[2019-12-18] MEDS: Lidocaine Patch REMOVE PATCH PATCH OFF SCH (22:31)
[2019-12-19] MEDS: NS 0.9% 1000 ml BAG 1,000 ML IV SCH ×2 (05:50→18:30)
[2019-12-19] MEDS: CMCS:Oral Rinse (Biotene)(NF) 237 ML or 473 ML ORAL RINSE BTL MT SCH ×5 (06:26→21:57)
[2019-12-19 06:36] LABS: ABS Eosinophils 0.5 10^3/ul (0-0.6); ABS Lymphocytes 0.5 10^3/ul (1.0-4.8); ABS Monocytes 0.7 10^3/ul (0-0.8); ABS Neutrophils 7.4 10^3/ul (1.5-7.7); Eosinophil % 5.7 %; Hematocrit 23 % (42-52); Lymphocyte % 5.5 %; Mean Corpuscular HGB Conc 34 g/dL (31-36); Mean Corpuscular Hemoglobin 33 pg (27-31); Mean Corpuscular Volume 98 fL (80-94); Mean Platelet Volume 9.7 fL (7.4-10.4); Nucleated Red Blood Cells % 0.1; Platelet Count 122 10^3/uL (150-450); Red Blood Count 2.39 10^6 /uL (4.18-5.48); Red Cell Distribution Width 18 % (10-15); White Blood Count 9.1 10^3/uL (3.5-10.8)
[2019-12-19 06:57] LABS: Albumin/Globulin Ratio 0.7 (1-3); BUN/Creatinine Ratio 27.4 (8-20); Calcium 7.7 mg/dL (8.6-10.3); EGFR Non-African American 55.4 (>60); Globulin 2.7 g/dL (2-4); Potassium 3.4 mmol/L (3.5-5.0); Total Bilirubin 9.3 mg/dL (0.2-1.0); Total Protein 4.7 g/dL (6.4-8.9)
[2019-12-19] MEDS: Pantoprazole VIAL 40 MG VIAL IV SCH ×2 (09:04→21:54)
[2019-12-19] MEDS: cefTRIAXone 1 gm/50 mL NS BAG 1 GM/50 ML BAG IVPB SCH (09:08)
[2019-12-19] MEDS: Lidocaine Patch REMOVE PATCH PATCH OFF SCH (21:53)
[2019-12-19] MEDS: HYDROcodone/ACETAMIN 5/325 mg TAB PO PRN (22:01)
[2019-12-20] MEDS: HYDROcodone/ACETAMIN 5/325 mg TAB PO PRN (04:27)
[2019-12-20] MEDS: Ondansetron 4 mg VIAL 2 MG/ML 2 ml VIAL IV PRN (04:28)
[2019-12-20] MEDS: CMCS:Oral Rinse (Biotene)(NF) 237 ML or 473 ML ORAL RINSE BTL MT SCH ×5 (04:29→21:44)
[2019-12-20 04:46] LABS: ABS Eosinophils 0.5 10^3/ul (0-0.6); ABS Lymphocytes 0.5 10^3/ul (1.0-4.8); ABS Monocytes 0.9 10^3/ul (0-0.8); ABS Neutrophils 8.5 10^3/ul (1.5-7.7); Eosinophil % 4.4 %; Hematocrit 28 % (42-52); Hemoglobin 9.1 g/dL (14.0-18.0); Lymphocyte % 4.9 %; Mean Corpuscular HGB Conc 33 g/dL (31-36); Mean Corpuscular Hemoglobin 33 pg (27-31); Mean Corpuscular Volume 100 fL (80-94); Mean Platelet Volume 9.7 fL (7.4-10.4); Nucleated Red Blood Cells % 0.1; Platelet Count 148 10^3/uL (150-450); Red Blood Count 2.77 10^6 /uL (4.18-5.48); Red Cell Distribution Width 18 % (10-15); White Blood Count 10.4 10^3/uL (3.5-10.8)
[2019-12-20 05:06] LABS: Albumin 2.2 g/dL (3.2-5.2); Albumin/Globulin Ratio 0.7 (1-3); BUN/Creatinine Ratio 22.3 (8-20); Calcium 8.2 mg/dL (8.6-10.3); EGFR African American 58.8 (>60); EGFR Non-African American 48.6 (>60); Globulin 3.1 g/dL (2-4); Total Protein 5.3 g/dL (6.4-8.9)
[2019-12-20 05:16] LABS: Potassium 3.7 mmol/L (3.5-5.0)
[2019-12-20 05:19] LABS: Total Bilirubin 12.9 mg/dL (0.2-1.0)
[2019-12-20] MEDS: cefTRIAXone 1 gm/50 mL NS BAG 1 GM/50 ML BAG IVPB SCH (09:26)
[2019-12-20] MEDS: NS 0.9% 1000 ml BAG 1,000 ML IV SCH ×2 (09:26→21:58)
[2019-12-20] MEDS: Pantoprazole VIAL 40 MG VIAL IV SCH ×2 (09:28→21:20)
[2019-12-20 18:34] LABS: Magnesium 1.8 mg/dL (1.9-2.7)
[2019-12-20] MEDS: Lidocaine Patch REMOVE PATCH PATCH OFF SCH (21:32)
[2019-12-21] MEDS: CMCS:Oral Rinse (Biotene)(NF) 237 ML or 473 ML ORAL RINSE BTL MT SCH ×5 (05:57→21:54)
[2019-12-21 06:39] LABS: Albumin 2.1 g/dL (3.2-5.2); Albumin/Globulin Ratio 0.7 (1-3); BUN/Creatinine Ratio 21.9 (8-20); Calcium 7.9 mg/dL (8.6-10.3); EGFR African American 59.8 (>60); EGFR Non-African American 49.4 (>60); Globulin 2.9 g/dL (2-4); Potassium 3.6 mmol/L (3.5-5.0)
[2019-12-21 06:45] LABS: Total Bilirubin 14.2 mg/dL (0.2-1.0)
[2019-12-21] MEDS: Pantoprazole VIAL 40 MG VIAL IV SCH ×2 (09:29→20:23)
[2019-12-21] MEDS: cefTRIAXone 1 gm/50 mL NS BAG 1 GM/50 ML BAG IVPB SCH (09:35)
[2019-12-21] MEDS: NS 0.9% 1000 ml BAG 1,000 ML IV SCH (11:07)
[2019-12-21] MEDS: HYDROcodone/ACETAMIN 5/325 mg TAB PO PRN (11:07)
[2019-12-21] MEDS: Lidocaine Patch REMOVE PATCH PATCH OFF SCH (20:26)
[2019-12-21 22:38] VITALS: BP 130/60
[2019-12-22] MEDS: CMCS:Oral Rinse (Biotene)(NF) 237 ML or 473 ML ORAL RINSE BTL MT SCH ×2 (05:32→09:35)
[2019-12-22] MEDS: Pantoprazole VIAL 40 MG VIAL IV SCH (09:23)
[2020-01-04 17:53] LABS: LNGPR Tissue ID S20-9032
== END 2019-12-22 11:30 | disposition hospice, home (50) | DRG 326 ==
LOC: ED 20:32 → MED 20:32 → SSU 12-14 17:50
PROVIDERS: ADMIT Internal Medicine; ATTEND Internal Medicine